=== PATIENT | female | born 1950 | race Two or more races ===

== ENCOUNTER 2023-02-05 11:37 | Outpatient (REF) | payer MEDICARE, SELFPAY ==
[2023-02-06 11:06] LABS: BV Int Neg Control Negative (Negative); BV Int Pos Control Positive (Positive)
== END 2023-02-05 11:38 | disposition home or self-care (01) ==
LOC: HO.CHCLNP 11:37
PROVIDERS: Visit Provider Family Medicine
DX: R10.2 Pelvic and perineal pain (principal)
CPT/HCPCS: 87086; 87480; 87510; 87660

== ENCOUNTER 2023-03-02 14:10 | Outpatient (REF) | payer OTHER, SELFPAY ==
--- NOTE | ~2023-03-02 | US_ITS ---
EXAMINATION: US PELVIS CLINICAL INFORMATION: Pelvic pain. Unknown last menstrual period. Uterus surgically absent. COMPARISON: None available. TECHNIQUE: Ultrasound of the pelvis is performed using both transabdominal and transvaginal transducers along with Doppler. Transvaginal imaging is performed due to inadequate visualization transabdominally. FINDINGS: Visualization severely limited due to bowel gas. The uterus and bilateral ovaries were not visualized. No significant free fluid. No adnexal masses or fluid collections identified. US/US pelvic and transvaginal IMPRESSION: Visualization severely limited due to bowel gas. The uterus and bilateral ovaries were not visualized. No significant free fluid. No adnexal masses or fluid collections identified. Correlation with surgical history and clinical exam recommended to determine further management. CT scan or MRI should be considered for further assessment.
== END 2023-03-02 14:11 | disposition home or self-care (01) ==
LOC: HO.US 14:10
PROVIDERS: PCP Family Medicine; Visit Provider Family Medicine
DX: R10.2 Pelvic and perineal pain (principal)
CPT/HCPCS: 76830; 76856

== ENCOUNTER 2023-07-12 08:36 | Outpatient (REF) | payer OTHER, SELFPAY ==
--- NOTE | ~2023-07-12 | XR_ITS ---
EXAMINATION: 1. RADIOGRAPHS RIGHT ANKLE 2. RADIOGRAPHS LEFT ANKLE CLINICAL INFORMATION: Bilateral ankle pain and swelling for 4 days. COMPARISON: None TECHNIQUE: 3 views of each ankle were obtained. FINDINGS: Right ankle: Visualized portion of the distal tibia and fibula demonstrate no fracture. Ankle mortise is maintained. There is soft tissue swelling of the right ankle, more prominent medially. No gross ankle joint effusion. Small posterior and plantar calcaneal enthesophytes. Left ankle: Visualized portion of the distal left tibia and fibula demonstrate no fracture. Ankle mortise is maintained. Mild to moderate soft tissue swelling of the ankle, particularly medially. No gross ankle joint effusion. Small to moderate-sized plantar and posterior calcaneal enthesophytes. XR/XR ankle RT min 3V IMPRESSION: Soft tissue swelling of both ankles without fracture or dislocation.
--- NOTE | ~2023-07-12 | XR_ITS ---
EXAMINATION: 1. RADIOGRAPHS RIGHT ANKLE 2. RADIOGRAPHS LEFT ANKLE CLINICAL INFORMATION: Bilateral ankle pain and swelling for 4 days. COMPARISON: None TECHNIQUE: 3 views of each ankle were obtained. FINDINGS: Right ankle: Visualized portion of the distal tibia and fibula demonstrate no fracture. Ankle mortise is maintained. There is soft tissue swelling of the right ankle, more prominent medially. No gross ankle joint effusion. Small posterior and plantar calcaneal enthesophytes. Left ankle: Visualized portion of the distal left tibia and fibula demonstrate no fracture. Ankle mortise is maintained. Mild to moderate soft tissue swelling of the ankle, particularly medially. No gross ankle joint effusion. Small to moderate-sized plantar and posterior calcaneal enthesophytes. XR/XR ankle LT min 3V IMPRESSION: Soft tissue swelling of both ankles without fracture or dislocation.
== END 2023-07-12 08:37 | disposition home or self-care (01) ==
LOC: HO.HHCX 08:36
PROVIDERS: Visit Provider Internal Medicine
DX: M25.571 Pain in right ankle and joints of right foot (principal); M25.572 Pain in left ankle and joints of left foot
CPT/HCPCS: 73610

== ENCOUNTER 2023-07-20 12:24 | Outpatient (REF) | payer OTHER, SELFPAY ==
--- NOTE | ~2023-07-20 | US_ITS ---
EXAMINATION: US RETROPERITONEAL LIMITED (RENAL ONLY) CLINICAL INFORMATION: Low back pain/leg pain and urinary symptoms. COMPARISON: None available. TECHNIQUE: Real-time ultrasound of the kidneys FINDINGS: RIGHT KIDNEY: 8.9 x 3.6 x 4.4 cm (SAG x AP x TRV). The right kidney has a duplicated collecting system. There is lower pole scarring with cortical loss. An extrarenal pelvis is noted. No calculi or hydronephrosis. LEFT KIDNEY: 10.3 x 4.3 x 4.5 cm (SAG x AP x TRV). The kidney is normal in size, contour, and echogenicity. Renal cortical thickness is normal. No hydronephrosis. There are 3 renal cysts, the largest is a 2.8 x 2.5 x 2.6 cm exophytic mid renal cyst. No imaging follow-up is recommended. 0.3 cm cortical calcification is seen in the mid kidney. No obstructing renal calculi. US/US renal BI IMPRESSION: 1. 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 2. 0.3 cm cortical calcification in the mid left kidney. This is of doubtful clinical significance.
== END 2023-07-20 12:25 | disposition home or self-care (01) ==
LOC: HO.US 12:24
PROVIDERS: PCP Family Medicine; Visit Provider Internal Medicine
DX: M25.571 Pain in right ankle and joints of right foot (principal); M25.572 Pain in left ankle and joints of left foot
CPT/HCPCS: 76775

== ENCOUNTER 2023-08-21 10:22 | Outpatient (REF) | payer OTHER, SELFPAY ==
--- NOTE | ~2023-08-21 | US_ITS ---
EXAMINATION: US LOWER EXTREMITY VENOUS (REFLUX EXAM), BILATERAL CLINICAL INDICATION: Varicose veins COMPARISON: None. TECHNIQUE: Color flow triplex imaging and compression Doppler was performed to evaluate both the deep and the superficial systems bilaterally. To evaluate the superficial system, the examination was performed in the upright position. Color-flow Doppler ultrasound and compression ultrasound were utilized. In addition, maneuvers were utilized to demonstrate reflux. FINDINGS: RIGHT: 1. DEEP VENOUS ULTRASOUND OF THE RIGHT LOWER EXTREMITY: Common Femoral Vein: Compressible, normal respiratory variation and augmented flow. Popliteal Vein: Compressible, normal augmentation. Deep Venous Reflux: There is no evidence of reflux in the deep system in either the common femoral vein or the popliteal vein. There is no evidence of a Beltran's cyst. 2. SUPERFICIAL ULTRASOUND WITH DOPPLER OF RIGHT LOWER EXTREMITY: RIGHT GREAT SAPHENOUS VEIN: Saphenofemoral Junction: 6 mm. No reflux. Proximal Thigh: 3 mm. No reflux. Mid Thigh: 2 mm. No reflux. Above Knee: 2 mm. No reflux. Below Knee: 2 mm. No reflux. Mid Calf: 2 mm. No reflux. Ankle: 4 mm. No reflux. DUPLICATED GREAT SAPHENOUS VEIN: Yes, laterally measuring 3 mm and without reflux. RIGHT SMALL SAPHENOUS VEIN: Proximal: 1 mm. No reflux. Distal: 2 mm. No reflux. PERFORATORS: Mid calf: 2 mm. No reflux LEFT: 1. DEEP VENOUS ULTRASOUND OF THE LEFT LOWER EXTREMITY: Common Femoral Vein: Compressible, normal respiratory variation and augmented flow. Popliteal Vein: Compressible, normal augmentation. Deep Venous Reflux: There is no evidence of reflux in the deep system in either the common femoral vein or the popliteal vein. There is no evidence of a Beltran's cyst. 2. SUPERFICIAL ULTRASOUND WITH DOPPLER OF LEFT LOWER EXTREMITY: LEFT GREAT SAPHENOUS VEIN: Saphenofemoral Junction: 4 mm. No reflux. Proximal Thigh: 2 mm. No reflux. Mid Thigh: 2 mm. No reflux. Above Knee: 2 mm. No reflux. Below Knee: 2 mm. No reflux. Mid Calf: 1 mm. 2588 ms reflux. Ankle: 2 mm. No reflux. DUPLICATED GREAT SAPHENOUS VEIN: Yes, laterally measuring 2 mm and without reflux. LEFT SMALL SAPHENOUS VEIN: Proximal: 2 mm. No reflux. Distal: 2 mm. No reflux. PERFORATORS: Mid thigh: 2 mm. No reflux Mid calf: 2 mm. No reflux US/US venous duplex LE BI IMPRESSION: Overall, no significant superficial venous reflux of bilateral lower extremities except for focal area at the left great saphenous vein at the mid calf where prolonged reflux is seen. Abnormal lower extremity venous reflux times: Superficial and deep calf veins: >500 ms Femoropopliteal veins: >1000 ms Perforating veins: >350 ms Kristie N, Sagar J, Chanel L, Georgiana COELHO, Ronald SS, Radha Cantu M, Ruby WH. Definition of venous reflux in lower-extremity veins.J Vasc Surg. 2003; 38:[phone]?798.
== END 2023-08-21 10:23 | disposition home or self-care (01) ==
LOC: HO.US 10:22
PROVIDERS: Visit Provider Family Medicine
DX: I83.813 Varicose veins of bilateral lower extremities with pain (principal)
CPT/HCPCS: 93970

== ENCOUNTER 2023-09-14 13:56 | Outpatient (REF) | payer OTHER, SELFPAY ==
--- NOTE | ~2023-09-14 | MM_ITS ---
EXAMINATION: MM SCREENING DIGITAL BREAST TOMOSYNTHESIS, BILATERAL CLINICAL INFORMATION: Screening. Asymptomatic. COMPARISON: Mammography: This study is compared with prior exams dating back to 2016. TECHNIQUE: Digital breast tomosynthesis is performed in both the craniocaudal and mediolateral oblique views along with computer-aided detection (CAD). Synthesized 2D images are generated from the tomosynthesis. FINDINGS: The breasts are heterogeneously dense, which may obscure small masses (ACR BI-RADS breast composition Category c). There are no significant masses, abnormal calcifications, or other abnormalities. MM/MM tomosynthesis screening BI IMPRESSION: No mammographic evidence of malignancy. ASSESSMENT: BI-RADS BI-RADS 1 - Negative RECOMMENDATION: Routine annual mammography screening. 1 year F/U This examination should not preclude the clinical evaluation of a suspicious palpable abnormality. This patient's information was entered into a reminder system with a target due date for their next mammogram.
== END 2023-09-14 13:57 | disposition home or self-care (01) ==
LOC: HO.MAMMO 13:56
PROVIDERS: PCP Family Medicine; Visit Provider Family Medicine
DX: Z12.31 Encounter for screening mammogram for malignant neoplasm of breast (principal)
CPT/HCPCS: 77063; 77067

== ENCOUNTER → 2023-09-14 14:15 | Outpatient (BNV) | payer OTHER, SELFPAY | PROVIDERS: PCP Family Medicine; Visit Provider Radiology Diagnostic Radiology | DX: Z12.31 Encounter for screening mammogram for malignant neoplasm of breast (principal) | CPT/HCPCS: 77063; 77067 ==

== ENCOUNTER 2023-09-27 09:48 | Outpatient (AMB) | payer OTHER, SELFPAY ==
--- NOTE | 2023-09-27 09:49 | A.OFFVIS_ITS ---
Vital Signs 09/27/23 09:55 Height 5 ft 4 in Weight 139 lb BMI 23.9 Intake Visit Reasons: [facility] referral for bilateral LE VV w/ pain Intake Note: New patient presents for bilateral lower extremity varicose veins with pain. Patient has pain in both legs, near the ankle. She experiences pain at night. States she gets swelling as well. Pain worsens when she is in bed. Accompanied by: Self / Same As Patient HPI [facility] referral for bilateral LE VV w/ pain: Details: Very pleasant 72-year-old female patient presents for painful varicose veins. Complaints include pain over varicosities, swelling of lower extremities, cramping, fatigue, and heaviness of the lower extremities. It has been affecting there daily activities including walking and grocery shopping. It is noted more so in left leg. Patient denies any previous venous surgery or injections. Patient denies any history of DVT/ PE. Patient denies any history of phlebitis. Trial of compression includes - prescription compression given by primary care doctor on 08/06/2023 They now present for vascular evaluation regarding their varicose veins. Review of Systems Const Reports as per HPI ENT Reports no additional complaints Card Denies chest pain, Denies chest pain at rest and Denies chest pain with activity Resp Denies chest congestion and Denies cough GI Reports no additional complaints Musc Details: pain over varicosities, aching of lower extremities, swelling, cramping, heaviness and tiredness, itching Denies abnormal gait Skin/Breast Reports pruritus and Denies wounds Neuro Reports no additional complaints and Denies abnormal gait Psych Denies no additional complaints Physical Exam Vital Signs: BMI result Body Mass Index 23.9 Const General: cooperative, healthy appearing and comfortable Orientation/consciousness: oriented to person, oriented to place and oriented to time Neck Carotids: no bruits Chest Chest palpation & inspection: normal inspection of the chest and normal palpation of entire chest wall Resp Effort & Inspection: normal respiratory effort and able to speak in complete sentences Cardio Rate: regular rate Heart sounds: S1 normal heart sound present and S2 normal heart sound present Peripheral pulses: Peripheral pulses 2+ throughout GI Inspection: Yes normal to inspection Skin Other: +2 edema, large rope-like varicosities greater than 4 mm skin color changes seen on bilateral ankles CEAP Classification C4 - skin color changes Ep - Etiology Primary As - superficial veins P - reflux General skin exam: dry skin Neuro General: oriented to person, oriented to place and oriented to time Extrem Right lower extremity: full ROM, normal capillary refill and edema Left lower extremity: full ROM, normal capillary refill and edema Psych Mental Status: mental status grossly normal Assessment & Plan Assessment & Plan (1) Varicose veins of left lower extremity with inflammation: Code(s): I83.12 - Varicose veins of left lower extremity with inflammation Category: Medical Plan: In short, the patient has evidence of venous insufficiency. I have discussed the pathophysiology with the patient. In addition I have provided informational material regarding venous disease to the patient. We have discussed conservative measures including compression, elevation, and exercise. I have also provided a handout regarding appropriate use of compression stockings and where to purchase good compression stockings as well. I have taken the liberty of ordering venous insufficiency testing with the patient. They will follow up with me after testing. The patient had an opportunity to ask questions regarding the treatment plan. All questions were answered. Imaging studies, laboratory studies and physical exam results were discussed and reviewed in detail. No major barriers to understanding were identified. The patient expressed understanding and agreement with the above treatment plan. The patient is aware they should contact our office by phone for worsening of the current condition or the appearance of new symptoms. Thank you for allowing me to participate in the vascular care of this patient. If you have any questions or concerns regarding the treatment for the above condition please do not hesitate to contact me. The office telephone contact is [phone]. This note is constructed using voice recognition software. While every effort has been made to ensure accuracy, contracting analyst errors may have been included. Thank you for allowing me to participate in the care of your patient. Yours sincerely, Cody Gonzalez MD, FACS, R.P.V.I. Orders: Orders US venous duplex LE BI 1 Week I83.12 - Varicose veins of left lower extremity with inflammation Coding Level of Care Code New Pt Level 4 (07986) Diagnoses Varicose veins of left lower extremity with inflammation I83.12
[2023-09-27 09:55] VITALS: BMI 23.9
== END 2023-09-27 10:03 | disposition home or self-care (01) ==
PROVIDERS: PCP Family Medicine; Visit Provider Surgery Vascular Surgery
DX: I83.12 Varicose veins of left lower extremity with inflammation (principal)
CPT/HCPCS: 99203

== ENCOUNTER → 2023-09-27 09:48 | Outpatient (BNVA) | payer OTHER, SELFPAY | PROVIDERS: PCP Family Medicine; Visit Provider Surgery Vascular Surgery | DX: I83.12 Varicose veins of left lower extremity with inflammation (principal) | CPT/HCPCS: 99202 ==

== ENCOUNTER 2023-10-15 11:26 | Outpatient (REF) | payer OTHER, SELFPAY ==
--- NOTE | ~2023-10-15 | CT_ITS ---
EXAMINATION: CT PELVIS WITH CONTRAST CLINICAL INFORMATION: Pelvic pain. COMPARISON: None available. TECHNIQUE: Helical scanning was performed with submillimeter collimation through the pelvis with the use of oral contrast and during bolus intravenous injection of 85mL of Omnipaque 350 intravenous contrast. Sagittal and coronal multiplanar 2-D reconstructions were obtained. This CT examination was performed using dose optimization techniques as appropriate, variously including the following: *Automated exposure control *Adjustment of mA and/or kV according to patient size (this includes techniques or standardized protocols for targeted exams where dose is matched to indication/reason for exam; i.e. extremities or head) *Use of iterative reconstruction technique DLP: 266 mGy-cm FINDINGS: PELVIS: Two high density masses appear to be present in the vaginal fornices. The uterus is not seen. An abnormal adnexal mass is not detected. No free intraperitoneal fluid is seen. The bladder appears unremarkable. The visualized bowel including the appendix appears unremarkable. No osseous abnormality is seen. There is a small spigelian-type hernia seen in the lower left pelvis which contains only fat. Fascial defect measures 1.[address]/CT pelvis w IV con IMPRESSION: 1. Two high density masses appear to be present in the vaginal fornices. If the patient inserts vaginal suppositories, possibly this could account for the appearance. Otherwise, Transabdominal and endovaginal ultrasound is recommended for further evaluation. 2. Small left lower pelvic Spigelian hernia containing only fat.
[2023-10-15] MEDS: Barium Sulfate Oral (Vanilla) 450 ML ORAL.SUSP 900 ML PO (14:25)
[2023-10-15] MEDS: iohexoL 350 MG/ML 75 ML INFUS..BTL 85 ML IV (14:25)
[2023-10-16 10:54] LABS: GFR POC 58
== END 2023-10-15 11:27 | disposition home or self-care (01) ==
LOC: HO.CT 11:26
PROVIDERS: PCP Family Medicine; Visit Provider Family Medicine
DX: R10.31 Right lower quadrant pain (principal); R10.2 Pelvic and perineal pain
CPT/HCPCS: 72193; 82565; Q9967

== ENCOUNTER 2023-12-12 08:49 | Outpatient (REF) | payer OTHER, SELFPAY ==
[2023-12-12 14:37] LABS: MANUAL DIFF FLAG NO
[2023-12-12 14:40] LABS: Basophils Absolute Auto 0.1 X10*3/uL (0.0-0.2); Basophils Percent Auto 0.7 % (0-2); Eosinophils Absolute Auto 0.4 X10*3/uL (0.0-0.4); Eosinophils Percent Auto 4.3 % (0-4); Hemoglobin 15.1 g/dl (12.0-16.0); Imm Gran Abs Auto 0.07 X10*3/uL (0.00-0.03); Imm Gran Pct Auto 0.7 % (0.0-0.4); Lymphocytes Absolute Auto 3.3 X10*3/uL (1.2-4.9); Lymphocytes Percent Auto 32.1 % (20-40); Mean Corpuscular HGB Conc 32.1 g/dl (31.0-35.0); Mean Corpuscular Hemoglobin 26.4 pg (27.0-33.0); Mean Corpuscular Volume 82.3 fL (80.0-98.0); Mean Platelet Volume 11.6 fL (9.4-12.3); Monocytes Absolute Auto 0.8 X10*3/uL (0.1-1.2); Monocytes Percent Auto 7.7 % (2-11); Neutrophils Absolute Auto 5.6 x10*3/uL (2.0-8.3); Neutrophils Percent Auto 54.5 % (45-73); Platelet Count 317 X10*3/uL (160-400); Red Blood Count 5.71 X10*6/uL (4.20-5.50); Red Cell Distribution Width 15.1 % (11.0-16.0); White Blood Count 10.3 X10*3/uL (4.8-10.8)
[2023-12-12 15:11] LABS: Alanine Aminotransferase 38 U/L (0-31); Albumin Level 4.7 g/dL (3.5-5.0); Alkaline Phosphatase 93 U/L (39-117); Anion Gap 11 (12-20); Aspartate Amino Transferase 29 U/L (5-31); Bilirubin Total 0.6 mg/dL (0.0-1.0); Blood Urea Nitrogen 24 mg/dL (9-16); Calcium 10.5 mg/dL (8.4-10.2); Carbon Dioxide 25 mmol/L (22-29); Chloride 107 mmol/L (96-108); Cholesterol 140 mg/dL (<200); Estimated Glomerular Filt Rate 59; Glucose Random 123 mg/dL (60-115); HDL Cholesterol 49 mg/dL (>40); LDL Cholesterol Calculated 62 mg/dL (<100); Potassium 3.8 mmol/L (3.3-5.1); Sodium 139 mmol/L (135-145); Total Protein 8.1 g/dL (6.5-8.0); Triglycerides 148 mg/dL (<150)
[2023-12-12 15:28] LABS: TSH reflex Free T4 4.27 uIU/mL (0.32-4.0); Vitamin D 25-OH Total 51.8 ng/mL (>30)
[2023-12-12 17:06] LABS: Free T4 (Free Thyroxine) 0.87 ng/dL (0.71-1.85)
== END 2023-12-12 08:50 | disposition home or self-care (01) ==
LOC: HO.CHCLDS 08:49
PROVIDERS: Visit Provider Family Medicine
DX: E11.9 Type 2 diabetes mellitus without complications (principal); L65.9 Nonscarring hair loss, unspecified
CPT/HCPCS: 36415; 80053; 80061; 82306; 84439; 84443; 85025

== ENCOUNTER 2023-12-20 09:57 | Outpatient (AMB) | payer OTHER, SELFPAY ==
--- NOTE | 2023-12-20 10:00 | MHC.OFFVIS ---
Intake Visit Reasons: Follow Up US Intake Note: Patient presents for follow up 08/20/24 US. She states she is still having bilateral leg pain. Patient rolled up pant leg to show that she has discoloration on both calfs. She gets leg cramps and swelling on and off . Accompanied by: Self / Same As Patient Allergies No Known Allergies Allergy (Verified 12/20/23 10:02) HPI HPI Follow Up US: Details: Very pleasant 73-year-old female presents for follow-up regarding lower extremity swelling. She reports that the swelling is more so in the ankles and does have tenderness over the ankle joints. She now presents for routine follow-up with venous insufficiency testing. She has used compression with some mild relief. No other interval issues. Review of Systems Const All systems reviewed & are unremarkable except as noted in HPI and below Reports no additional complaints ENT Reports Normal hearing present Card Denies chest pain, Denies chest pain at rest, Denies chest pain with activity and Denies pedal edema Resp Denies cough GI Denies abdominal pain Musc Denies abnormal gait, Denies muscle cramps and Denies radiating pain into limb Skin/Breast Denies skin ulcer and Denies wounds Neuro Reports Normal hearing present and Denies abnormal gait Psych Reports no additional complaints Physical Exam Const General: cooperative, healthy appearing and comfortable Orientation/consciousness: oriented to person, oriented to place and oriented to time HEENT Head: Yes normal to inspection Neck Neck: Yes normal visual inspection Carotids: no bruits Chest Chest palpation & inspection: normal inspection of the chest Resp Effort & Inspection: normal respiratory effort and able to speak in complete sentences Auscultation: clear to auscultation bilaterally, no crackles, no rales, no rhonchi and no wheezes Cardio Rate: regular rate Rhythm: regular rhythm Heart sounds: S1 normal heart sound present and S2 normal heart sound present Bruits: no carotid bruits Peripheral pulses: Peripheral pulses 2+ throughout GI Inspection: Yes normal to inspection Skin Wounds: no wounds Hair: normal Neuro General: oriented to person, oriented to place and oriented to time Cranial nerves: Yes CN's II-XII intact bilaterally and Yes Normal hearing present Cognition (Neuro): normal cognition Motor exam (neuro): 5/5 motor strength present throughout Extrem Other: venous exam: +1 edema at ankles General: No clubbing, No cyanosis and Yes edema Psych Appearance: grossly normal Mental Status: mental status grossly normal Speech and movement: Normal speech and movement present Results Reviewed Results Reviewed: Brief summary of venous insufficiency testing is as follows: right great saphenous vein: negative right small saphenous vein: negative right accessory vein: none present left great saphenous vein: negative left small saphenous vein: negative left accessory vein: none present Please note there is no evidence of any venous aneurysms or significant tortuosity Assessment & Plan Assessment & Plan (1) Varicose veins of left lower extremity with inflammation: Code(s): I83.12 - Varicose veins of left lower extremity with inflammation Category: Medical Plan: In short patient has pain and discomfort in bilateral ankles along with swelling. Of note it does not appear to be vascular in nature as she does have palpable arterial pulses bilaterally in addition to negative venous insufficiency testing. Upon direct palpation she does have tenderness and I do believe that this may be an element of arthritis along with chronic swelling. We did discuss routine conservative measures including compression elevation and exercise. The patient will follow up with us on an as-needed basis. Thank you for allowing us to assist in her care. Coding Level of Care Code Est Pt Level 4 (72962) Diagnoses Varicose veins of left lower extremity with inflammation I83.12
== END 2023-12-20 10:25 | disposition home or self-care (01) ==
PROVIDERS: PCP Family Medicine; Visit Provider Surgery Vascular Surgery
DX: I83.12 Varicose veins of left lower extremity with inflammation (principal)
CPT/HCPCS: 99214

== ENCOUNTER → 2023-12-20 09:57 | Outpatient (BNVA) | payer OTHER, SELFPAY | PROVIDERS: PCP Family Medicine; Visit Provider Surgery Vascular Surgery | DX: I83.12 Varicose veins of left lower extremity with inflammation (principal) | CPT/HCPCS: 99212 ==

== ENCOUNTER 2024-02-18 09:04 | Outpatient (REF) | payer OTHER, SELFPAY ==
[2024-02-18 14:48] LABS: TSH reflex Free T4 6.39 uIU/mL (0.32-4.0)
[2024-02-18 15:20] LABS: Free T4 (Free Thyroxine) 0.88 ng/dL (0.71-1.85)
== END 2024-02-18 09:05 | disposition home or self-care (01) ==
LOC: HO.CHCLDS 09:04
PROVIDERS: Visit Provider Family Medicine
DX: E03.9 Hypothyroidism, unspecified (principal)
CPT/HCPCS: 36415; 84439; 84443

== ENCOUNTER 2024-04-17 13:58 | Outpatient (REF) | payer OTHER, SELFPAY ==
[2024-04-17 18:12] LABS: Anion Gap 12 (12-20); Blood Urea Nitrogen 22 mg/dL (9-16); Calcium 9.9 mg/dL (8.4-10.2); Carbon Dioxide 24 mmol/L (22-29); Chloride 110 mmol/L (96-108); Estimated Glomerular Filt Rate 41; Glucose Random 110 mg/dL (60-115); Parathyroid Hormone Intact 81.7 pg/mL (8.7-77.1); Sodium 142 mmol/L (135-145)
[2024-04-17 18:28] LABS: TSH reflex Free T4 4.13 uIU/mL (0.32-4.0)
[2024-04-17 19:14] LABS: Free T4 (Free Thyroxine) 1.02 ng/dL (0.71-1.85)
== END 2024-04-17 13:59 | disposition home or self-care (01) ==
LOC: HO.CHCLDS 13:58
PROVIDERS: PCP Family Medicine; Visit Provider Internal Medicine
DX: E83.52 Hypercalcemia (principal); E03.9 Hypothyroidism, unspecified
CPT/HCPCS: 36415; 80048; 83970; 84439; 84443

== ENCOUNTER 2024-04-30 10:08 | Outpatient (REF) | payer OTHER, SELFPAY ==
[2024-05-03 20:33] LABS: Thyrotropin Receptor Antibody <1.00 IU/L (<=2.00)
[2024-05-05 11:39] LABS: Thyroglobulin Antibodies <1 IU/mL (< or = 1)
== END 2024-04-30 10:09 | disposition home or self-care (01) ==
LOC: HO.LAB 10:08
PROVIDERS: PCP Family Medicine; Visit Provider Family Medicine
DX: E03.9 Hypothyroidism, unspecified (principal)
CPT/HCPCS: 36415; 83520; 86800

== ENCOUNTER 2024-08-22 11:02 | Outpatient (REF) | payer OTHER, SELFPAY ==
--- OUTSIDE RECORDS SUMMARY | 2024-08-22 12:00 | XMS_ITS | Encounter Summary ---
Author Organization [facility] Address [address] [place] [address] Care Team Providers Care Certified Nurse Name Role Phone Ponce Dumont MD Primary Care Provider Un available Allie Gandara DO Primary Care Pro vider Unavailable Gregory Underwood MD Primary Care Provider Dominique Santos MD Primary Care Provider Zulema henry Reason for Referral * EXTERNAL (Routine) - Authorized/Booked Specialty Diagnoses / Procedures Referred By Cori fraire Referred To Contact Physical Therapy Procedures REFERRAL TO PHYSICAL THERAPY Ponce Dumont MD [address] [place], [place] [address]ab., [facility] Referral ID Status Reason Start Date Expiration Date V isits Requested Visits Authorized SEE NOTE Authorized/B ooked 02/06/2018 05/08/2018 1 1 Reason for Visit * Reason Onset Date Comments 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 02/06/2018 [facility] Encounter Details Date Type Department Care Team Description 02/06/2018 Telephone Adult Medicine [address] [address] Ponce Dumont MD 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 0 days 04/24/2019 On average, how many minutes do you engage in exercise at this level? Not asked Stress Answer Date Recorded Do you feel stress - tense, restless, nervous, or anxious, or unable to sleep at night because your mind is troubled all the time - these days? To some extent 04/24/2019 Sex Assigned at Date Recorded Not on file documented as of this encounter Miscellaneous Notes * Telephone Encounter - Cielo Brito - 02/06/2018 12:58 PM EDT Patient has an appointment with Vamsi on 02/19/2018 and needs a new updated order. Please review and sign. documented in this encounter Plan of Treatment Not on file documented as of this encounter Visit Diagnoses Not on filedocumented in this encounter Care Teams Certified Nurse Relationship Specialty Start Date End Date Ponce Dumont MD PCP - General Internal Medicine 10/23/17 Allie Gandara DO PCP - General Internal Medicine 04/18/19 01/30/21 Gregory Underwood MD PCP - General Internal Medicine 01/31/21 12/18/21 Dominique Nielsen MD PCP - General Family Practice 12/19/21 documented as of this encounter
--- OUTSIDE RECORDS SUMMARY | 2024-08-22 12:00 | XMS_ITS | Encounter Summary ---
Author Organization [facility] Address [address] [place] [address] Care Team Providers Care Printer Machine Name Role Phone Dominique Nielsen MD Primary Care Provider Zulema henry Encounter Details Date Type Department Care Team Description 11/27/2022 SCAN [facility] [address] [place] [address] Jerry Wright MD [address] [facility] [place] [address] Social History Tobacco Use Types Packs/Day Years [...] Assigned at Date Recorded Not on file COVID-19 Exposure Response Date Recorded In the last 10 days, have yo u been in contact with someone who was confirmed or suspected to have Coronavirus/COVID-19? No / Unsure 11/16/2022 2:30 PM EDT documented as of this encounter Plan of Treatment Not on file documented as of this encounter Visit Diagnoses Not on filedocumented in this encounter Care Teams Printer Machine Relationship Specialty Start Date End Date Dominique Nielsen MD PCP - General Family Practice 12/19/21 documented as of this encounter
--- OUTSIDE RECORDS SUMMARY | 2024-08-22 12:00 | XMS_ITS | Encounter Summary ---
Author Organization [facility] Address [address] [place] [address] Care Team Providers Care Procurement Inspector Name Role Phone Ponce Dumont MD Primary Care Provider Un available Allie Gandara DO Primary Care Pro vider Unavailable Gregory Underwood MD Primary Care Provider Dominique Santos MD Primary Care Provider Zulema henry Reason for Visit * Reason Comments E-prescribe Rx Request Encounter Details Date Type Department Care Team Description 07/15/2018 Refill Adult Medicine [address] [address] Ponce Dumont MD E-prescribe Rx Request Social History Tobacco Use Types Packs/Day Years [...] encounter Miscellaneous Notes * Telephone Encounter - Rosemary Lima M.A. - 07/17/2018 3:00 PM EST Lab Results Component Value Date NA 144 01/17/2018 K 3.7 01/17/2018 CO2 25.1 01/17/2018 CL 103 01/17/2018 BUN 19 01/17/2018 CREAT 0.8 01/17/2018 GLU 129 01/17/2018 CA 9.8 01/17/2018 GFR > 60 01/17/2018 * Telephone Encounter - Khadijah Titus - 07/15/2018 3:55 PM EST Patient would like script to be: E-PRESCRIBED/FAXED TO PHARMACY WHEN WAS THE PATIENT'S LAST APPOINTMENT IN ADULT MEDICINE? 04-18-18 WHEN WAS THE LAST TIME THE PATIENT SAW THEIR PCP? Same as above Does patient have an upcoming appointment? No-patient refused appointment, will call back to book appointment (THE MEDICATION REQUESTED IS ON THE MED LIST ABOVE) All of the medications requested were on the CURRENT MEDS list Did you check the Pharmacy information above?: YES Patient wants: 30 -day supply Is this a mail order prescription request ? NO If the refill is from a FAXED refill request what is the RX # listed on the fax? N/A Patients current insurance carrier is: Payor: [facility] / Plan: [employer] $0 [facility] [id number] / Product Type: HMO [id number] documented in this encounter Plan of Treatment Not on file documented as of this encounter Visit Diagnoses Not on filedocumented in this encounter Care Teams Procurement Inspector Relationship Specialty Start Date End Date Ponce Dumont MD PCP - General Internal Medicine 10/23/17 Allie Gandara DO PCP - General Internal Medicine 04/18/19 01/30/21 Gregory Underwood MD PCP - General Internal Medicine 01/31/21 12/18/21 Dominique Nielsen MD PCP - General Family Practice 12/19/21 documented as of this encounter
--- OUTSIDE RECORDS SUMMARY | 2024-08-22 12:00 | XMS_ITS | Encounter Summary ---
Author Organization [facility] Address [address] [place] [address] Care Team Providers Care Slag Expander Name Role Phone Gregory Underwood MD Primary Care Provider Dominique Santos MD Primary Care Provider Zulema henry Encounter Details Date Type Department Care Team Description 12/15/2021 Release of Information Medical Records [address] [place] [id number] [facility] Social History Tobacco Use Types Packs/Day Years [...] on file documented as of this encounter Plan of Treatment Not on file documented as of this encounter Visit Diagnoses Not on filedocumented in this encounter Care Teams Slag Expander Relationship Specialty Start Date End Date Gregory Underwood MD PCP - General Internal Medicine 01/31/21 12/18/21 Dominique Nielsen MD PCP - General Family Practice 12/19/21 documented as of this encounter
--- OUTSIDE RECORDS SUMMARY | 2024-08-22 12:00 | XMS_ITS | Encounter Summary ---
Author Organization [facility] Address [address] [place] [address] Care Team Providers Care Reel Worker Name Role Phone Ponce Dumont MD Primary Care Provider Un available Allie Gandara DO Primary Care Pro vider Unavailable Gregory Underwood MD Primary Care Provider Dominique Santos MD Primary Care Provider Zulema henry Encounter Details Date Type Department Care Team Description 01/21/2018 Release of Information Medical Records [address] [place] [id number] Abstract, Provider Social History Tobacco Use Types Packs/Day Years [...] on filedocumented in this encounter Care Teams Reel Worker Relationship Specialty Start Date End Date Ponce Dumont MD PCP - General Internal Medicine 10/23/17 Allie Gandara DO PCP - General Internal Medicine 04/18/19 01/30/21 Gregory Underwood MD PCP - General Internal Medicine 01/31/21 12/18/21 Dominique Nielsen MD PCP - General Family Practice 12/19/21 documented as of this encounter
--- OUTSIDE RECORDS SUMMARY | 2024-08-22 12:00 | XMS_ITS | Encounter Summary ---
Author Organization [employer] Address [address] [place] [address] [address] [place] [address] Care Team Providers Care Violent Crimes Detective Name Role Phone Dominique Nielsen MD Primary Care Provider [phone] Reason for Visit * Reason Comments Med Refill Encounter Details Date Type Department Care Team ([facility] st Contact Info) Description 11/04/2022 Refill [facility] CHC MED & PEDS [address] [place], [place] [phone] Dominique Nielsen MD [address] [place] [address] Rash in adult Social History Tobacco Use Types Packs/Day Years Used Date Smoking Tobacco: Never Passive Smoke Exposure: Never Smokeless Tobacco: Never Alcohol Use Standard Drinks/Week Comments Never 0 (1 standard drink = 0.6 oz pur e alcohol) Comments Unknown Sex and Gender Information Value Date Recorded Sex Assigned at Female 03/13/2022 10:39 AM EDT Legal Sex Female 10:39 AM EDT Gender Identity Female 03/13/2022 10:39 AM EDT Sexual Orientation Straight 03/13/2022 10 :39 AM EDT documented as of this encounter Plan of Treatment Not on file documented as of this encounter Visit Diagnoses Diagnosis Rash in adult documented in this encounter Additional Health Concerns Assessment Noted Time PHQ-9 Depression Total Score: 13 023 9:28 AM EDT documented as of this encounter Care Teams Violent Crimes Detective Relationship Specialty Start Date End Date Dominique Nielsen MD [address] [place] [address] PCP - General Family Medicine 04/04/21 documented as of this encounter
--- OUTSIDE RECORDS SUMMARY | 2024-08-22 12:00 | XMS_ITS | Clinical Summary ---
Author Organization [facility] Address [address] [place] [address] Care Team Providers Care Game Tester Name Role Phone Allie Gandara DO Primary Care P rovider Allergies Active Allergy Reactions Criticality Noted Date Comments Aspirin 08/18/2020 Face and neck redness Penicillin G 08/18/2020 Face and neck redness Medications Medication Sig Dispensed Refills Start Date End Date Status loratadine (CLARITIN) 10 MG tablet Take 10 mg by mouth daily. 0 Active triamcinolone (KENALOG) 0.1 % lotion Apply 1 application topically 3 (three) times a day. 0 Active Calcium-Vitamin D 600-200 MG-UNIT per tablet Take 1 tablet by mouth daily. 0 Active losartan (COZAAR) tablet 25 mg Take 25 mg by mouth daily. 0 Active amLODIPine (NORVASC) tablet 10 mg Take 10 mg by mouth daily. 0 Active Active Problems No known active problems Social History Tobacco Use Types Packs/Day Years Used Date Smoking Tobacco: Never Smokeless Tobacco: Never Alcohol Use Standard Drinks/Week Comments No 0 (1 standard drink = 0.6 oz pur e alcohol) Sex and Gender Information Value Date Recorded Sex Assigned at Not on file Gender Identity Not on file Sexual Orientation Not on file Last Filed Vital Signs Vital Sign Reading Time Taken Comments Blood Pressure 144/63 09/01/2020 1:41 PM EDT Pulse 86 09/01/2020 1:41 PM EDT Temperature 36.8 ??C (98.3 ??F) 09/01/2020 1:41 PM ED T Respiratory Rate - - Oxygen Saturation 100% 09/01/2020 1:41 PM EDT Inhaled Oxygen Concentration - - Weight 66.7 kg (147 lb) 09/01/2020 1:41 PM EDT Height 165.1 cm (5' 5 ) 09/01/2020 1:41 PM EDT Body Mass Index 24.46 09/01/2020 1:41 PM EDT Plan of Treatment Health Maintenance Due Date Last Done Comments Hepatitis C Screening 1950 COVID-19 Vaccine (#1) 05/05/1953 Depression Screening 1964 Preventative Health Evaluation 1970 DTap / Tdap / Td (1 - Tdap) 11/04/1971 Colon Cancer Screening (Colonoscopy) 1997 Breast Cancer Screening (Mammogram) 2002 Shingrix-Zoster Vaccine (1 of 2) 2002 Fall Risk Assessment 2017 Osteoporosis Screening (DEXA Scan) 2017 Pneumococcal Vaccine (2 of 2 - PPSV23 or PCV20) 04/24/2020 04/24/2019 Influenza Vaccine (#1) 2024 RSV Adult > 60+ Yrs or Pregn ant (1 - 1-dose 75+ series) 11/04/2027 Hepatitis B Vaccines Aged Out No long er eligible based on patient's age to complete this topic RSV Ped < 20 months Aged Out No longe r eligible based on patient's age to complete this topic Care Teams Game Tester Relationship Specialty Start Date End Date Allie Gandara DO PCP - General Abstract Clerk 07/23/20
--- OUTSIDE RECORDS SUMMARY | 2024-08-22 12:00 | XMS_ITS | Encounter Summary ---
Author Organization [employer] Address [address] [facility] [address] [place] [address] Care Team Providers Care Diesel Engine Mechanic Apprentice Name Role Phone Dominique Nielsen MD Primary Care Provider [phone] Reason for Visit * Reason Comments Med Refill Encounter Details Date Type Department Care Team ([facility] st Contact Info) Description 10/18/2023 Refill [facility] CHC MED & PEDS [address] [place], [place] [phone] Dominique Nielsen MD [address] [place] [address] Primary hypertension Social History Tobacco Use Types Packs/Day Years Used Date Smoking Tobacco: Never Passive Smoke Exposure: Never Smokeless Tobacco: Never Alcohol Use Standard Drinks/Week Comments Never 0 (1 standard drink = 0.6 oz pur e alcohol) Depression Answer Date Recorded Patient Health Questionnaire-9 Score 0 08/28/2023 Patient Health Questionnaire-9 Score 0 08/28/2023 Last PHQ-9: Questionnaire Data Not on file 0 08/28/2023 Housing Stability Answer Date Recorded What is your housing situation today? I have juventino moe 08/28/[address] you li ve. Do you have problems with any of the following? None of the above 08/28/2023 Food Insecurity Answer Date Recorded Within the past 12 months, y ou worried that your food would run out before you got money to buy more: Never True 08/28/2023 Within the past 12 months,th e food you bought just didn't last and you didn't have enough money to get more: Never True Transportation Answer Date Recorded In the past 12 months, has l ack of transportation kept you from medical appts, meetings, work or from getting things needed for daily living? No 08/28/2023 Utilities Answer Date Recorded In the past 12 months, has t he electric, gas, oil or water company threatened to shut off services in your home? No 08/28/2023 Depression Answer Date Recorded Patient Health Questionnaire-2 Score 0 08/28/2023 Comments Unknown Sex and Gender Information Value Date Recorded Sex Assigned at Female 03/13/2022 10:39 AM EDT Legal Sex Female 10:39 AM EDT Gender Identity Female 03/13/2022 10:39 AM EDT Sexual Orientation Straight 03/13/2022 10 :39 AM EDT documented as of this encounter Plan of Treatment Not on file documented as of this encounter Visit Diagnoses Diagnosis Primary hypertension Unspecified essential hypertension documented in this encounter Additional Health Concerns Assessment Noted Time PHQ-9 Depression Total Score: 0 08/28/19 24 3:50 PM EDT documented as of this encounter Care Teams Diesel Engine Mechanic Apprentice Relationship Specialty Start Date End Date Dominique Nielsen MD [address] [place] [address] PCP - General Family Medicine 04/04/21 documented as of this encounter
--- OUTSIDE RECORDS SUMMARY | 2024-08-22 12:00 | XMS_ITS | Clinical Summary ---
Author Organization [facility] Address [address] [place] [address] Phone Care Team Providers Care Assistant Therapy Aide Name Role Phone Dominique Nielsen MD Primary Care Provider [phone] Allergies Active Allergy Reactions Criticality Noted Date Comments Aspirin Itching,Rash Low 01/17/2018 Face & neck redness Face and neck redness Penicillins Rash High 05/27/2022 Pollen Extracts 08/08/2024 Medications No known medications Active Problems No known active problems Encounters Date Type Department Care Team Description 08/08/2024 10:40 AM EDT - 08/08/2024 1:13 PM EDT Emergency [facility] Emergency [address] [place] [address] Dry eyes, bilateral (Primary Dx) Discharge Disposition: Home or Self Care from Last 3 Months Surgical History Surgery Date Site/Laterality Comments SECTION PROCEDURE: HISTORICAL DELIVERY HYSTERECTOMY PROCEDURE: HISTORICAL HYSTERECTOMY; COMMENT: due to fibroids Medical History Medical History Date Comments HTN (hypertension) 01/17/2018 DX:HTN (hyper tension) Allergic rhinitis 01/17/2018 DX:Allergic rh initis Varicose veins of both lower extremities 01/17/2018 DX:Varicose veins of both lo wer extremities Osteopenia 03/20/2018 DX:Osteopenia Urticaria 04/18/2018 DX:Urticaria Family History Medical History Relation Name Comments No Known Problems Father Hypertension Mother Thyroid disease Mother Relation Name Status Comments Father Mother Alive Social History Tobacco Use Types Packs/Day Years Used Date Smoking Tobacco: Never Smokeless Tobacco: Never Alcohol Use Standard Drinks/Week Comments No 0 (1 standard drink = 0.6 oz pur e alcohol) Comments Unknown Sex and Gender Information Value Date Recorded Sex Assigned at Female 08/08/2024 11:46 AM EDT Legal Sex Female 12:58 AM EST Gender Identity Female 08/08/2024 11:46 AM EDT Sexual Orientation Straight 08/08/2024 11 :46 AM EDT Obstetrics History Last Filed Vital Signs Vital Sign Reading Time Taken Comments Blood Pressure 149/69 08/08/2024 9:36 AM EDT Pulse 79 08/08/2024 9:36 AM EDT Temperature 36.6 ??C (97.9 ??F) 08/08/2024 9:36 AM ED T Respiratory Rate 18 08/08/2024 9:36 AM EDT Oxygen Saturation 98% 08/08/2024 9:36 AM EDT Inhaled Oxygen Concentration - - Weight 62.1 kg (137 lb) 08/08/2024 9:35 AM EDT Height 160 cm (5' 3 ) 08/08/2024 9:35 AM EDT Body Mass Index 24.27 08/08/2024 9:35 AM EDT Plan of Treatment Health Maintenance Due Date Last Done Comments Breast Cancer Screening 1952 Diabetes: Annual GFR (Glomerular Filtration Rate) 1952 Diabetes: Annual Foot Exam 1962 Diabetes: Annual Retina Eye Exam 1962 RSV Immunization Adult Patients (1 - Risk 60-74 years 1-dose series) 2012 Falls Risk Assessment 04/16/2022 Hepatitis C Screening 04/16/2022 Medicare Annual Wellness Visit 04/16/2022 Social Influencers of Health Screening 04/16/2022 Hypertension/CHF/CAD Annual BMP Blood Test 04/28/2022 Diabetes: Annual Urine Albumin-Creatinine Ratio (uACR) 10/18/2023 10/17/2022 COVID-19 Vaccine ( - 2023-2 5 season) 2024 Depression Screening 08/27/2024 08/28/2023 Diabetes: Blood Sugar Contro l Test (HGBA1C) 10/16/2024 04/17/2024 Influenza Vaccine (Season Ended) 2025 04/04/2021 Colorectal Cancer Screening: FIT-DNA (Cologuard) 05/26/2027 05/26/2024 Osteoporosis Screening (Bone Density Screening) 03/19/2028 03/19/2018 Cholesterol Screening (Lipid Panel) 12/11/2028 12/12/2023 DTaP,Tdap,and Td Vaccines (3 - Td or Tdap) 08/23/2031 08/22/2021, 10/27/2013 Pneumococcal Vaccine: 50+ Years Completed 11/22/2021, 04/24/2019 Zoster Vaccines Completed 11/22/2021, 08/22/2021 HIB Vaccines Aged Out No longer eligi ble based on patient's age to complete this topic HPV Vaccines Aged Out No longer eligi ble based on patient's age to complete this topic Hepatitis A Vaccines Aged Out No long er eligible based on patient's age to complete this topic Hepatitis B Vaccines Aged Out No long er eligible based on patient's age to complete this topic IPV Vaccines Aged Out No longer eligi ble based on patient's age to complete this topic MMR Vaccines Aged Out No longer eligi ble based on patient's age to complete this topic Meningococcal ACWY Vaccine Aged Out N o longer eligible based on patient's age to complete this topic Meningococcal B Vaccine Aged Out No l onger eligible based on patient's age to complete this topic RSV Immunization Patients Under 20 months Aged Out No longer eligible b ased on patient's age to complete this topic Varicella Vaccines Aged Out No longer eligible based on patient's age to complete this topic Procedures Procedure Name Priority Date/Time Associated Diagnosis Comments POCT GLUCOSE BLOOD Routine 08/08/2024 12 :37 PM EDT DXA BONE DENSITY STUDY 1+ SITS AXIAL SKEL Routine 03/19/2018 1:18 PM EST Thoracogenic scoliosis, thoracic region from Last 3 Months or Most Recently Relevant to Health Maintenance Results * (ABNORMAL) POCT Glucose, blood (08/08/2024 12:37 PM EDT) [facility] Glucose POCT 134(H) 70 - 100 mg/dL 08/10/2024 7:17 AM EDT [facility] Blood Capillary blood specimen / Unknown 08/08/2024 12:37 PM EDT 08/10/2024 7:18 AM EDT us Generic Provider Poct LAB POINT OF CARE TEST DOCKED DEVICE UNSOLICITED RESULTS Final Result MEHRDAD STEVEN [place] ([facility] [address] [place] [address], * DXA BONE DENSITY STUDY 1+ SITS AXIAL SKEL (03/19/2018 1:18 PM EST) Anatomical Region Laterality Modality Bone Densitometr y 01/17/2018 2:2 0 PM EDT Narrative 03/20/2018 1:51 PM EST BONE DENSITY ? Lumbar Spine T-score is -1.3 ?? (SD relative to 20-29 y/o adult) Z-score is +0.4 ??(SD relative to age matched peers) This is consistent with osteopenia by criteria defined by the WHO. Left Hip T-score is -0.1 Z-score is +1.4 This is normal by criteria defined by the WHO. Impression: Based on the World Health Organization criteria, Raeann Rivera should be classified as having osteopenia. This patient has a 7.8% risk of major osteoporotic fracture and a 0.2% risk of hip fracture over the next 10 years. (World Health Organization Fracture Risk Assessment) [facility] [facility] Department of Internal Medicine recommends using National Osteoporosis Foundation (NOF) guidelines in treatment decisions related to osteoporosis. NOF guidelines suggest considering treatment for postmenopausal women and men aged 50 or older presenting with the following: History of hip or vertebral fracture. T-score less than or equal to -2.5 (DXA) at the femoral neck, total hip, or spine, after appropriate evaluation to exclude secondary causes. Low bone mass (T-score between -1.0 and -2.5 at the femoral neck or spine) AND a 10-year probability of a hip fracture greater than or equal to 3% OR a 10-year probability of a major osteoporosis-related fracture greater than or equal to 20% based on the [place]-adapted WHO algorithm Please note that all treatment decisions require clinical judgment and consideration of individual patient factors, including patient preferences, co-morbidities, previous drug use, risk factors not captured in the FRAX model (e.g., frailty, falls, vitamin D deficiency, increased bone turnover, interval significant decline in bone density) and possible under- or over-estimation of fracture risk by FRAX. Procedure Note Abrahan Conde MD - 05/02/2022 BONE DENSITY Lumbar Spine T-score is -1.3 (SD relative to 20-29 y/o adult) Z-score is +0.4 (SD relative to age matched peers) This is consistent with osteopenia by criteria defined by the WHO. Left Hip T-score is -0.1 Z-score is +1.4 This is normal by criteria defined by the WHO. Impression: Based on the World Health Organization criteria, Raeann Nortonould be classified as having osteopenia. This patient has a 7.8% risk ofmajor osteoporotic fracture and a 0.2% risk of hip fracture over the next10 years. (World Health Organization Fracture Risk Assessment) [facility] [facility] Department of Internal Medicine recommendsusing National Osteoporosis Foundation (NOF) guidelines in treatmentdecisions related to osteoporosis. NOF guidelines suggest consideringtreatment for postmenopausal women and men aged 50 or older presentingwith the following: History of hip or vertebral fracture. T-score less than or equal to -2.5 (DXA) at the femoral neck, total hip,or spine, after appropriate evaluation to exclude secondary causes. Low bone mass (T-score between -1.0 and -2.5 at the femoral neck or spine)AND a 10-year probability of a hip fracture greater than or equal to 3% ORa 10-year probability of a major osteoporosis-related fracture greaterthan or equal to 20% based on the [place]-adapted WHO algorithm Please note that all treatment decisions require clinical judgment andconsideration of individual patient factors, including patientpreferences, co-morbidities, previous drug use, risk factors not capturedin the FRAX model (e.g., frailty, falls, vitamin D deficiency, increasedbone turnover, interval significant decline in bone density) and possibleunder- or over-estimation of fracture risk by FRAX. Ponce Dumont MD IMG DXA PROCEDURES Georgiana l Result from Last 3 Months or Most Recently Relevant to Health Maintenance Insurance MEDICAID - [place] [facility] [employer] Member Subscriber Plan / Payer (Ef fective 2024-Present) Name:Raeann Tejada Relation to Subscriber:Self Name:Raeann Tejada Payer ID:[id number] Group ID:Not on file Type:Not on file Address: [facility] [address] [id number] Care Teams Assistant Therapy Aide Relationship Specialty Start Date End Date Dominique Nielsen MD [address] [place] [address] PCP - General 12/19/21
--- OUTSIDE RECORDS SUMMARY | 2024-08-22 12:00 | XMS_ITS | Encounter Summary ---
Author Organization [employer] Address [address] [place] [address] [address] [place] [address] Care Team Providers Care Rehab Liaison Name Role Phone Dominique Nielsen MD Primary Care Provider [phone] Reason for Visit * Reason Onset Date Comments Med Refill 08/18/2024 Encounter Details Date Type Department Care Team ([facility] st Contact Info) Description 08/18/2024 Refill [facility] CHC MED & PEDS [address] [place] [address] Dominique Nielsen MD [address] [place] [address] Primary hypertension Social History Tobacco Use Types Packs/Day Years Used Date Smoking Tobacco: Never Passive Smoke Exposure: Never Smokeless Tobacco: Never Alcohol Use Standard Drinks/Week Comments Never 0 (1 standard drink = 0.6 oz pur e alcohol) Alcohol Answer Date Recorded Q1: How often do you have a drink containing alc ohol? 2 04/17/2024 Q2: How many drinks containi ng alcohol do you have on a typical day when you are drinking? 0 04/17/2024 Q3: How often do you have six or more drinks on one occasion? 1 04/17/2024 Depression Answer Date Recorded Patient Health Questionnaire-9 [...] Answer Date Recorded Patient Health Questionnaire-2 Score 2 04/17/2024 Comments Unknown Sex and Gender Information Value [...] documented as of this encounter Care Teams Rehab Liaison Relationship Specialty Start Date End Date Dominique Nielsen MD [address] [place] [address] PCP - General Family Medicine 04/04/21 documented as of this encounter
--- OUTSIDE RECORDS SUMMARY | 2024-08-22 12:00 | XMS_ITS | Encounter Summary ---
Author Organization [employer] Address [address] [facility] [address] [place] [address] Care Team Providers Care Golf Shoe Spike Assembler Name Role Phone Dominique Nielsen MD Primary Care Provider [phone] Encounter Details Date Type Department Care Team (Latest Contact Info) Description 08/20/2024 Travel Social History Tobacco Use Types Packs/Day Years [...] Diagnoses Not on filedocumented in this encounter Additional Health Concerns Assessment Noted Time PHQ-9 Depression Total Score: 0 08/28/19 24 3:50 PM EDT documented as of this encounter Care Teams Golf Shoe Spike Assembler Relationship Specialty Start Date End Date Dominique Nielsen MD [address] [place] [address] PCP - General Family Medicine 04/04/21 documented as of this encounter
--- OUTSIDE RECORDS SUMMARY | 2024-08-22 12:00 | XMS_ITS | Encounter Summary ---
Author Organization [facility] Address [address] [place] [address] Care Team Providers Care Compressor Service Technician Name Role Phone Allie Gandara DO Primary Care Pro vider Gregory Dee MD Primary Care Provider Dominique Santos MD Primary Care Provider Zulema henry Reason for Visit * Reason Onset Date Comments APPOINTMENT 08/01/2019 Encounter Details Date Type Department Care Team Description 08/01/2019 Telephone Adult Medicine [address] [address] Allie Gandara DO APPOINTMENT Social History Tobacco Use Types Packs/Day Years [...] encounter Miscellaneous Notes * Telephone Encounter - Tiny Rees - 08/01/2019 12:37 PM EDT Patient came in, explained what pcp said, rescheduled patient with pcp 11/04/19 * Telephone Encounter - Rosa Giron L.P.N. - 08/01/2019 10:50 AM EDT Message left for patient' s daughter Marangely to call re appt today Rosa Giron L.P.NEduardo * Telephone Encounter - Apoorva Davey M.A. - 08/01/2019 8:35 AM EDT Message left asking pt to call prior to coming in for today appt. Per pcp pt was just seen 07/18/19, pt does not need to come in today If no new changes since last ov documented in this encounter Plan of Treatment Not on file documented as of this encounter Visit Diagnoses Not on filedocumented in this encounter Care Teams Compressor Service Technician Relationship Specialty Start Date End Date Allie Gandara DO PCP - General Internal Medicine 04/18/19 01/30/21 Gregory Underwood MD PCP - General Internal Medicine 01/31/21 12/18/21 Dominique Nielsen MD PCP - General Family Practice 12/19/21 documented as of this encounter
--- OUTSIDE RECORDS SUMMARY | 2024-08-22 12:00 | XMS_ITS | Encounter Summary ---
Author Organization [employer] Address [address] [facility] [address] [place] [address] Care Team Providers Care Commercial Estimator Name Role Phone Dominique Nielsen MD Primary Care Provider [phone] Encounter Details Date Type Department Care Team ([facility] st Contact Info) Description 08/20/2024 2:45 PM EDT Office Visit [facility] OPTOMETRY [address] [place], [place] [phone] TarkaCarlita, OD [address] [place], [place] [id number] Dry eyes, bilateral (Primary Dx); Meibomian gland dysfunction (MGD) of upper and lower lids of both eyes Social History Tobacco Use Types Packs/Day Years [...] AM EDT documented as of this encounter Progress Notes * Carlita Vera, OD - 08/20/2024 2:45 PM EDT Eye Care Progress Note Patient ID: Raeann Rivera is a 73 y.o. female. HPI Patient presents for dry eye follow up. Patient has been using Pred QID both eyes (OU) x 1 week and reports improvement in symptoms. Patient reports there is still pain in right eye (OD). Patient states that pain has decreased from 6/10 to4/10. Patient is also using Systane ATs BID both eyes (OU), artificial tear enmanuel at bedtime OU, cyclosporine BID both eyes (OU). Last edited by Carlita Vera, OD on 08/20/2024 2:59 PM. Current Outpatient Medications Medication Sig Dispense Refill Acetaminophen 500 MG capsule Take 2 capsules (1,000 mg) by mouth every 8 (eight) hours. 60 capsule 0 amLODIPine (Norvasc) 10 MG tablet TAKE 1 TABLET BY MOUTH IN THE MORNING 90 tablet 1 amLODIPine (Norvasc) 10 MG tablet TAKE 1 TABLET BY MOUTH IN THE MORNING 90 tablet 1 atorvastatin (Lipitor) 40 MG tablet TAKE 1 TABLET BY MOUTH EVERY DAY 90 tablet 1 betamethasone dipropionate (Diprolene) 0.05 % ointment APPLY TO THE AFFECTED AREA ON THE LEGS AND ARRMS TWICE DAILY FOR 2 WEEK Calcium Carb-Cholecalciferol 600-10 MG-MCG tablet Take 1 tablet by mouth. carvedilol (Coreg) 12.5 MG tablet Take 1 tablet (12.5 mg) by mouth with breakfast and with evening meal. 60 tablet 11 cetirizine (ZyrTEC) 10 MG tablet TAKE 1 TABLET BY MOUTH IN THE MORNING 90 tablet 1 chlorthalidone (Hygroton) 25 MG tablet Take 1 tablet (25 mg) by mouth in the morning. 90 tablet 1 cholecalciferol (Vitamin D-3) 50 MCG (2000 UT) tablet Take 1 tablet by mouth at bed time. clonazePAM (KlonoPIN) 0.5 MG tablet Take 1 tablet (0.5 mg) by mouth if needed each day for anxiety.Preprocedure anxiety, take 1 tablet 30 minutes before intended procedure 1 tablet 0 cycloSPORINE (Restasis) 0.05 % ophthalmic emulsion Administer 1 drop into both eyes 2 times daily. 60 mL 11 doxepin (SINEquan) 25 MG capsule TAKE 1 CAPSULE(25 MG) BY MOUTH AT BEDTIME 90 capsule 1 FREESTYLE LITE test strip 1 each by Other route 2 times daily. 100 each 11 furosemide (Lasix) 20 MG tablet Take 10 mg by mouth in the morning. furosemide (Lasix) 20 MG tablet Take 1 tablet (20 mg) by mouth Once per day. 30 tablet 2 glucose blood (FREESTYLE LITE) test strip 1 each every 12 (twelve) hours. halobetasol (UltraVATE) 0.05 % ointment Apply topically 2 times daily. 50 g 0 Lancets misc 1 Units 2 times daily. 100 each 11 levothyroxine (Synthroid) 25 MCG tablet Take 1 tablet (25 mcg) by mouth before breakfast. 30 losartan (Cozaar) 100 MG tablet Take 1 tablet (100 mg) by mouth Once per day. 90 tablet 2 miconazole (Micatin) 2 % cream Apply topically 2 times daily. 35 g 0 Minoxidil 5 % solution apply 1/2 cupful of minoxidil 5% foam once daily in the morning 200 mL 3 naproxen (EC Naprosyn) 500 MG EC tablet Take 1 tablet (500 mg) by mouth 2 times daily. 60 tablet 0 olopatadine (Patanol) 0.1 % ophthalmic solution Administer 1 drop into both eyes 2 times daily. 5 mL 2 pantoprazole (ProtoNix) 40 MG EC tablet TAKE 1 TABLET(40 MG) BY MOUTH BEFORE BREAKFAST. DO NOT CRUSH, CHEW, OR SPLIT 90 tablet 1 prednisoLONE acetate (Pred-Forte) 1 % ophthalmic suspension Administer 1 drop into both eyes 4 times daily for 14 days. 5 mL 0 silver sulfADIAZINE (Silvadene) 1 % cream Apply topically 2 times daily. 400 g 0 spironolactone (Aldactone) 25 MG tablet TAKE 1 TABLET(25 MG) BY MOUTH IN THE MORNING 90 tablet 1 terbinafine (LamISIL AT) 1 % cream Apply topically 2 times daily. 90 g 0 triamcinolone (Kenalog) 0.1 % ointment Apply topically 2 times daily. 30 g 0 No current facility-administered medications for this visit. History reviewed. No pertinent past medical history. History reviewed. No pertinent surgical history. No family history on file. Tobacco Use: Low Risk (08/20/2024) Tobacco Smoking Tobacco Use: Never Smokeless Tobacco Use: Never Passive Exposure: Never Allergies Allergen Reactions Gramineae Pollens Aspirin Rash Penicillins Rash ROS Positive for: Eyes Negative for: Constitutional, Gastrointestinal, Neurological, Skin, Genitourinary, Musculoskeletal,HENT, Endocrine, Cardiovascular, Respiratory, Psychiatric, Allergic/Imm, Heme/Lymph Last edited by Carlita Vera OD on 08/20/2024 2:58 PM. Base Eye Exam Visual Acuity (Snellen - Linear) Right Left Dist cc 20/25+2 20/30+2 Tonometry (iCare , 2:36 PM) Right Left Pressure 13 13 Pupils Pupils APD Right PERRL None Left PERRL None Visual Moreno Left Right Full Full Extraocular Movement Right Left Full Full Neuro/Psych Oriented x3: Yes Slit Lamp and Fundus Exam External Exam Right Left External Normal Normal Slit Lamp Exam Right Left Lids/Lashes 4+ MGD inferior w/ lid margin telangectasias, inspissated glands UL/LL, 1+ blepharitis UL 4+ MGD inferior w/ lid margin telangectasias, inspissated glands UL/LL, 1+ blepharitis UL Conjunctiva/Sclera Tr bulbar injection Tr bulbar injection Cornea tr interpalpebral SPK, TBUT instant 1+ interpalpebral SPK, TBUT instant Anterior Chamber Deep and quiet, angles open g r3 Deep and quiet, angles open gr 3 Iris Flat, round Flat, round Lens Clear Clear Assessment and Plan Diagnoses and all orders for this visit: Dry eyes, bilateral - Continue using Systane ATs BID OU, artificial tear enmanuel QHS OU, warm compresses BID and eyelid scrub with baby shampoo, Restasis BID both eyes (OU) - Continue Pred Acetate 1gtt QID both eyes (OU) x 1 week then discontinue Meibomian gland dysfunction (MGD) of upper and lower lids of both eyes - Severe meibomian gland dysfunction (MGD) without significant corneal staining - Discussed option of initiating Doxycycline if symptoms persist with topical treatments however advised that treatment course will be greater than 1 month and there can be GI side effects Advised to RTC if symptoms return/worsen/persist after discontinuing steroid drop. Carlita Vera, OD 08/20/2024, 2:59 PM Engineer Second Assistant Source: __ None _x_ Bilingual Staff __ Qualified Staff Clearance Rep __ Telephone Engineer Second Assistant; ID# __ Engineer Second Assistant brought by patient (family member, friend, [employer], etc) __ In person spanish medical interpreter __ Ipad Engineer Second Assistant; ID#: Language Spoken During Exam: Welsh documented in this encounter Plan of Treatment Not on file documented as of this encounter Visit Diagnoses Diagnosis Dry eyes, bilateral- Primary Meibomian gland dysfunction (MGD) of upper and lower lids of both eyes documented in this encounter Additional Health Concerns Assessment Noted Time PHQ-9 Depression Total Score: 0 08/28/19 24 3:50 PM EDT documented as of this encounter Care Teams Commercial Estimator Relationship Specialty Start Date End Date Dominique Nielsen MD [address] [place] [address] PCP - General Family Medicine 04/04/21 documented as of this encounter
--- OUTSIDE RECORDS SUMMARY | 2024-08-22 12:00 | XMS_ITS | Encounter Summary ---
Author Organization [employer] Address [address] [facility] [address] [place] [address] Care Team Providers Care Assistant Printer Floor Covering Name Role Phone Dominique Nielsen MD Primary Care Provider [phone] Reason for Visit * Reason Onset Date Comments Med Refill 10/18/2023 Encounter Details Date Type Department Care Team ([facility] st Contact Info) Description 10/18/2023 Refill [facility] PEDS [address] [place] [address] Dominique Nielsen MD [address] [place] [address] Primary hypertension Social History Tobacco Use Types [...] documented as of this encounter Care Teams Assistant Printer Floor Covering Relationship Specialty Start Date End Date Dominique Nielsen MD [address] [place] [address] PCP - General Family Medicine 04/04/21 documented as of this encounter
--- OUTSIDE RECORDS SUMMARY | 2024-08-22 12:00 | XMS_ITS | Encounter Summary ---
Author Organization [employer] Address [address] [facility] [address] [place] [address] Care Team Providers Care Warehouse Operator Name Role Phone Dominique Nielsen MD Primary Care Provider [phone] Reason for Visit * Reason Onset Date Comments callback requested 04/28/2024 Encounter Details Date Type Department Care Team ([facility] Contact Info) Description 04/28/2024 Telephone [facility] MEDICINE [address] [place] [address] Dominique Nielsen MD [address] [place] [phone] callback requested Social History Tobacco Use Types Packs/Day Years [...] AM EDT documented as of this encounter Miscellaneous Notes * Telephone Encounter - Christina Rivera - 04/28/2024 12:11 PM EST Tc from Daughter requesting a callback as pt received something from [facility] like for a lab test but she's unknown of what she receive. Callback number [phone] documented in this encounter Plan of Treatment Not on file documented as of this encounter Visit Diagnoses Not on filedocumented in this encounter Additional Health Concerns Assessment Noted Time PHQ-9 Depression Total Score: 0 08/28/19 24 3:50 PM EDT documented as of this encounter Care Teams Warehouse Operator Relationship Specialty Start Date End Date Dominique Nielsen MD [address] [place] [address] PCP - General Family Medicine 04/04/21 documented as of this encounter
--- OUTSIDE RECORDS SUMMARY | 2024-08-22 12:00 | XMS_ITS | Encounter Summary ---
Author Organization [facility] Address [address] [place] [address] Care Team Providers Care Ammonium Nitrate Crystallizer Name Role Phone Ponce Dumont MD Primary Care Provider Un available Allie Gandara DO Primary Care Pro vider Unavailable Gregory Underwood MD Primary Care Provider Dominique Santos MD Primary Care Provider Zulema henry Encounter Details Date Type Department Care Team Description 01/22/2018 Orders Only Adult Medicine [address] [address] Ponce Dumont MD Elevated glucose (Primary Dx) Social History Tobacco Use Types Packs/Day Years [...] on file documented as of this encounter Results * (ABNORMAL) HEMOGLOBIN A1C (01/28/2018 11:09 AM EDT) Glycosylated Hemoglobin A1C 6.3(H) 4.0 - 6.0 % 01/28/2018 11:39 AM EDT [facility] Comment: HbA1C VALUES MAY NOT ACCURATELY REFLECT MEAN BLOOD GLUCOSE IN PATIENTS WITH HEMOGLOBIN VARIANTS SUCH HbF, HbS. 01/28/2018 11:0 9 AM EDT 01/28/2018 11:10 AM EDT Ponce Dumont MD LAB Performing Organization Address City/State/[facility] Co de Phone Number [address] documented in this encounter Visit Diagnoses Diagnosis Elevated glucose- Primary Other abnormal glucose documented in this encounter Care Teams Ammonium Nitrate Crystallizer Relationship Specialty Start Date End Date Ponce Dumont MD PCP - General Internal Medicine 10/23/17 Allie Gandara DO PCP - General Internal Medicine 04/18/19 01/30/21 Gregory Underwood MD PCP - General Internal Medicine 01/31/21 12/18/21 Dominique Nielsen MD PCP - General Family Practice 12/19/21 documented as of this encounter
--- OUTSIDE RECORDS SUMMARY | 2024-08-22 12:00 | XMS_ITS | Clinical Summary ---
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 1420 TD/TT: Compressor Station Chief Engineer: Dominique Nielsen MD IMG BI PROCEDURES Final Resul t * Albumin, Random Urine W/O Creatinine (10/17/2022 8:35 AM EDT) Albumin, Urine 8.7 See Note: mg/dL [facility] [place] [facility] Comment: Reference Range: Reference Range Not established [facility] [employer] [place] [facility] Comment: The ADA defines abnormalities in albumin excretion as follows: Albuminuria Category ? Result (mcg/mg creatinine) Normal to Mildly increased ?<30 Moderately increased ?30-299 Severely increased ?> OR = 300 The ADA recommends that at least two of three specimens collected within a 3-6 month period be abnormal before considering a patient to be within a diagnostic category. Urine Urine specimen obtained by clean catch procedure / Unknown 10/17/2022 8:35 AM EDT 10/17/2022 8:35 AM EDT Narrative [facility] - 10/18/2022 5:07 PM EDT FASTING:YES FASTING: YES Dominique Nielsen MD LAB URINE ORDERABLES Final Re sult [facility] [address], [place] [address] [employer] [place] [facility] [address] [place] [phone] * HEPATITIS C AB W/REFL TO HCV RNA, QN, PCR (08/03/2021 8:53 AM EDT) HEPATITIS C ANTIBODY NON-REACT JAS NON-REACT JAS [facility] INDEX 0.01 <1.00 [facility] Comment: ?? HCV antibody was non-reactive. There is no laboratory ?? evidence of HCV infection. ?? In most cases, no further action is required. However, if recent HCV exposure is suspected, a test for HCV RNA (test code 43666) is suggested. ?? For additional information please refer to http://education.Blippar/faq/CCM78f3 (This link is being provided for informational/ educational purposes only.) ?? 08/03/2021 8:53 AM EDT Dominique Nielsen MD HISTORICAL/NON ORDERABLE LABS Final Result [facility] [address] from Last 3 Months or Most Recently Relevant to Health Maintenance Insurance [facility] Care Teams Manager Coding Relationship Specialty Start Date End Date Dominique Nielsen MD [address] [place] [address] PCP - General Family Medicine 04/04/21
--- OUTSIDE RECORDS SUMMARY | 2024-08-22 12:00 | XMS_ITS | Clinical Summary ---
Author Organization [facility] Address [address] [place] [address] Care Team Providers Care Juice Packaging Machines Setter Name Role Phone Dominique Nielsen MD Primary Care Provider Zulema henry Allergies Active Allergy Reactions Severity Noted Date Comments Aspirin 01/17/2018 Face & neck redness Penicillin G 01/17/2018 Face & neck redness Medications Medication Sig Dispensed Refills Start Date End Date Status triamcinolone (KENALOG) 0.1 % lotion Apply topically 2 times daily as needed. 0 Active loratadine (CLARITIN) 10 MG tablet Take 1 Tab by mouth daily. 0 Active Calcium Carbonate-Vitamin D3 600-400 MG-UNIT Tab Take 1 Tab by mouth 2 times daily. 60 Tab 11 04/18/2018 Active Blood Glucose Monitoring Suppl (FREESTYLE LITE) Device Test blood sugar once daily 1 Device 0 05/01/2019 Active FREESTYLE LANCETS Misc Test blood sugar once daily 100 Each 1 05/01/2019 Active Glucose Blood (FREESTYLE LITE) Strip USE TO TEST BLOOD SUGAR ONCE DAILY 100 Strip 1 10/21/2019 Active amlodipine (NORVASC) 10 MG tablet TAKE 1 TABLET BY MOUTH DAILY 90 tablet 0 01/26/2021 Active losartan (COZAAR) 25 MG tablet Take 1 tablet by mouth daily. 15 tablet 0 03/29/2021 Active acetaminophen (Acetaminophen 8 Hour) 650 MG CR tablet Take 1 Tablet by mouth every 8 hours as needed for Pain for up to 30 days. 60 Tablet 0 09/06/2022 Active triamcinolone acetonide (KENALOG-40) 40 MG/ML injection 1 mL by Other route once for 1 dose. 1 mL 0 12/25/2022 Active Active Problems Problem Noted Date Microalbuminuria 07/21/2019 DM (diabetes mellitus), type 2 with angella l complications 07/21/2019 High triglycerides 05/01/2019 Type 2 diabetes mellitus 04/28/2019 Overview: Not on medication. A1C 6.7 on 04/24/19 Urticaria 04/18/2018 Osteopenia 03/20/2018 HTN (hypertension) 01/17/2018 Allergic rhinitis 01/17/2018 Varicose veins of both lower extremities 01/17/2018 Kyphosis of thoracic region 01/17/2018 Resolved Problems Problem Noted Date Resolved Date Prediabetes 04/24/2019 05/01/2019 Immunizations Name Administration Dates Next Due Pneumococcal Conjugate PCV-13 04/24/2019 Family History Medical History Relation Name Comments No Known Problems Father Hypertension Mother Thyroid Disorder Mother Relation Name Status Comments Father Mother Alive Social History Tobacco Use Types Packs/Day Years Used Date Smoking Tobacco: Never Smokeless Tobacco: Never Tobacco Cessation:Counseling Given: Not Answered Alcohol Use Standard Drinks/Week Comments No 0 [...] Assigned at Date Recorded Not on file Last Filed Vital Signs Vital Sign Reading Time Taken Comments Blood Pressure 161/61 02/22/2022 10:08 AM EDT Pulse 74 07/18/2019 9:05 AM EST Temperature 36.7 ??C (98.1 ??F) 06/11/2020 11:[address] Respiratory Rate 12 07/18/2019 9:05 AM EST Oxygen Saturation 99% 07/18/2019 9:05 AM EST Inhaled Oxygen Concentration - - Weight 64 kg (141 lb) 02/13/2023 2:24 PM EDT Height 160 cm (5' 3 ) 02/13/2023 2:24 PM EDT Body Mass Index 24.98 02/13/2023 2:24 PM EDT Plan of Treatment Health Maintenance Due Date Last Done Comments Covid-19 Vaccine (#1) 05/05/1951 DIABETES: ANNUAL EYE EXAM 1970 DIABETES: ANNUAL FOOT EXAM 1970 HEPATITIS C SCREENING 1970 MAMMOGRAM 1992 SHINGLES VACCINE (1 of 2) 2002 BONE DENSITY SCREENING 03/19/2020 03/19/2018 DIABETES: BLOOD SUGAR CONTRO L TEST (HGBA1C) 10/06/2020 07/09/2020, 04/24/2019, 01/28/2018 DIABETES/HEART DISEASE: PRISCILA AL CHOLESTEROL (LDL) 07/09/2021 07/09/2020, 04/24/2019, 01/17/2018 DIABETES: ANNUAL URINE PROTE IN TEST (MICROALBUMIN) 07/09/2021 07/09/2020, 07/18/2019 INFLUENZA (Season Ended) 2025 COLON CANCER SCREENING 06/23/2029 06/23/2019 DTAP/TDAP/TD (2 - Td or Tdap) 08/23/2031 08/22/2021 PNEUMOCOCCAL VACCINE Completed 11/22/2021, 04/24/20 19 Care Teams Juice Packaging Machines Setter Relationship Specialty Start Date End Date Dominique Nielsen MD PCP - General Family Practice 8/8/22
--- OUTSIDE RECORDS SUMMARY | 2024-08-22 12:00 | XMS_ITS | Encounter Summary ---
Author Organization [facility] Address [address] [place] [address] Care Team Providers Care Bowling Alley Mechanic Name Role Phone Dominique Nielsen MD Primary Care Provider Zulema henry Encounter Details Date Type Department Care Team Description 11/20/2022 SCAN [facility] Medical [facility] [address] [facility] [address] [place] [address] Guillermina Gray APRN Social History Tobacco Use Types Packs/Day Years [...] on filedocumented in this encounter Care Teams Bowling Alley Mechanic Relationship Specialty Start Date End Date Dominique Nielsen MD PCP - General Family Practice 12/19/21 documented as of this encounter
--- OUTSIDE RECORDS SUMMARY | 2024-08-22 12:00 | XMS_ITS | Encounter Summary ---
Author Organization [employer] Address [address] [place] [address] 7 [place] [address] Care Team Providers Care Apparel Merchandiser Name Role Phone Dominique Nielsen MD Primary Care Provider [phone] Reason for Referral * Imaging (Routine) - Pending Review Specialty Diagnoses / Procedures Referred By Contac t Referred To Contact Radiology Diagnoses Cognitive impairment Procedures MRA Head w/o Contrast Alexis Clinton MD [address] [place] [address] Phone: tel: fax: [address] Phone: tel: fax: Referral ID Status Reason Start Date Expiration Date V isits Requested Visits Authorized [id number] Pending Review 08/22/2024 08/22/2025 1 1 Encounter Details Date Type Department Care Team (Late st Contact Info) Description 08/22/2024 Orders Only [facility] PEDS [address] [place] [address] Alexis Clinton MD [address] [place] [address] Cognitive impairment (Primary Dx) Social History Tobacco Use Types [...] as of this encounter Plan of Treatment Scheduled Orders Name Type Priority Associated Diagnoses Orde r Schedule Vitamin B12/Folate, Serum Panel Lab Routine Cognitive impairment Expected: 08/22/2024, Expires: 08/22/2025 TSH W/Reflex to FT4 Lab Routine Cognitive impairment Expected: 08/22/2024 (Approximate), Expires: 08/22/2025 MRA Head w/o Contrast Imaging Routine Cognitive impairment Expected: 08/22/2024, Expires: 08/22/2025 documented as of this encounter Visit Diagnoses Diagnosis Cognitive impairment- Primary Unspecified persistent mental disorders due to conditions classified elsewhere documented in this encounter Additional Health Concerns Assessment Noted Time PHQ-9 Depression Total Score: 0 08/28/19 24 3:50 PM EDT documented as of this encounter Care Teams Apparel Merchandiser Relationship Specialty Start Date End Date Dominique Nielsen MD [address] [place] [address] PCP - General Family Medicine 04/04/21 documented as of this encounter
--- OUTSIDE RECORDS SUMMARY | 2024-08-22 12:00 | XMS_ITS | Encounter Summary ---
Author Organization [facility] Address [address] [place] [address] Care Team Providers Care Bark Tanner Name Role Phone Dominique Nielsen MD Primary Care Provider Zulema henry Encounter Details Date Type Department Care Team Description 08/16/2022 SCAN [facility] Medical [facility] [address] [facility] [address] [place] [address] Guillermina Gray APRN Social History [...] on filedocumented in this encounter Care Teams Bark Tanner Relationship Specialty Start Date End Date Dominique Nielsen MD PCP - General Family Practice 12/19/21 documented as of this encounter
--- OUTSIDE RECORDS SUMMARY | 2024-08-22 12:00 | XMS_ITS | Encounter Summary ---
Author Organization [facility] Address [address] [place] [address] Care Team Providers Care Sample Sawyer Name Role Phone Allie Gandara DO Primary Care Pro vider Gregory Dee MD Primary Care Provider Dominique Santos MD Primary Care Provider Zulema henry Encounter Details Date Type Department Care Team Description 07/04/2019 Transfer Records Medical Records [address] [place] [address] Abstract, Provider Social History Tobacco Use Types [...] on filedocumented in this encounter Care Teams Sample Sawyer Relationship Specialty Start Date End Date Allie Gandara DO PCP - General Internal Medicine 04/18/19 01/30/21 Gregory Underwood MD PCP - General Internal Medicine 01/31/21 12/18/21 Dominique Nielsen MD PCP - General Family Practice 12/19/21 documented as of this encounter
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
--- OUTSIDE RECORDS SUMMARY | 2024-08-22 12:01 | XMS_ITS | Encounter Summary ---
Author Organization [facility] Address [address] [place] [address] Care Team Providers Care Firer Tunnel Kiln Name Role Phone Allie Gandara DO Primary Care Pro vider Gregory Dee MD Primary Care Provider Dominique Santos MD Primary Care Provider Zulema henry Encounter Details Date Type Department Care Team Description 05/26/2020 Orders Only Medical Records [address] [place] [address] Kathia Johnson MD [address] [place] [phone] Social History Tobacco Use Types Packs/Day Years [...] on file documented as of this encounter Procedures Procedure Name Priority Date/Time Associated Diagnosis Comments OUTSIDE PATHOLOGY Routine 05/21/2020 documented in this encounter Results * OUTSIDE PATHOLOGY (05/21/2020) Kathia Johnson MD OUTSIDE LAB documented in this encounter Visit Diagnoses Not on filedocumented in this encounter Care Teams Firer Tunnel Kiln Relationship Specialty Start Date End Date Allie Gandara DO PCP - General Internal Medicine 04/18/19 01/30/21 Gregory Underwood MD PCP - General Internal Medicine 01/31/21 12/18/21 Dominique Nielsen MD PCP - General Family Practice 12/19/21 documented as of this encounter
--- OUTSIDE RECORDS SUMMARY | 2024-08-22 12:01 | XMS_ITS | Encounter Summary ---
Author Organization [facility] Address [address] [place] [address] Care Team Providers Care Environmental Compliance Manager Name Role Phone Gregory Underwood MD Primary Care Provider Dominique Santos MD Primary Care Provider Zulema henry Encounter Details Date Type Department Care Team Description 11/22/2021 Fac Engineer Report Medical Records [address] [place] [address] Dominique Nielsen MD Social History Tobacco Use Types Packs/Day Years [...] on filedocumented in this encounter Care Teams Environmental Compliance Manager Relationship Specialty Start Date End Date Gregory Underwood MD PCP - General Internal Medicine 01/31/21 12/18/21 Dominique Nielsen MD PCP - General Family Practice 12/19/21 documented as of this encounter
--- OUTSIDE RECORDS SUMMARY | 2024-08-22 12:01 | XMS_ITS | Encounter Summary ---
Author Organization [facility] Address [address] [place] [address] Care Team Providers Care Anodize Machine Operator Name Role Phone Allie Gandara DO Primary Care Pro vider Unavailable Gregory Underwood MD Primary Care Provider Dominique Santos MD Primary Care Provider Zulema henry Reason for Referral * EXTERNAL (Routine) - Authorized/Booked Specialty Diagnoses / Procedures Referred By Contac t Referred To Contact Oncology/Hematology Procedures REFERRAL TO ONCOLOGY/HEMATOLOGY (IN NETWORK) Allie Gandara DO [address] [place] [address] Lety Monteiro MD [facility] [address] [place] [address] Referral ID Status Reason Start Date Expiration Date V isits Requested Visits Authorized [id number] Authorized/B ooked 07/15/2020 10/16/2020 1 1 Encounter Details Date Type Department Care Team Description 07/15/2020 Orders Only Adult Medicine [address] [address] Allie Gandara DO Social History Tobacco Use Types Packs/Day Years [...] Exposure Response Date Recorded In the last month, have you been in contact with someone who was confirmed or suspected to have Coronavirus / COVID-19? No / Unsure 07/09/2020 8:08 AM EST documented as of this encounter Plan of Treatment Not on file documented as of this encounter Visit Diagnoses Not on filedocumented in this encounter Care Teams Anodize Machine Operator Relationship Specialty Start Date End Date Allie Gandara DO PCP - General Internal Medicine 04/18/19 01/30/21 Gregory Underwood MD PCP - General Internal Medicine 01/31/21 12/18/21 Dominique Nielsen MD PCP - General Family Practice 12/19/21 documented as of this encounter
[2024-08-22 14:47] LABS: Anion Gap 14 (12-20); Blood Urea Nitrogen 23 mg/dL (9-16); Calcium 9.4 mg/dL (8.4-10.2); Carbon Dioxide 23 mmol/L (22-29); Chloride 110 mmol/L (96-108); Estimated Glomerular Filt Rate > 60; Glucose Random 120 mg/dL (60-115); Sodium 143 mmol/L (135-145)
[2024-08-22 15:03] LABS: TSH reflex Free T4 3.35 uIU/mL (0.32-4.0)
[2024-08-22 15:17] LABS: Folate 11.9 ng/mL (> or = 4.0); Vitamin B12 372 pg/mL (200-900)
== END 2024-08-22 11:03 | disposition home or self-care (01) ==
LOC: HO.CHCLDS 11:02
PROVIDERS: Visit Provider Internal Medicine
DX: I10 Essential (primary) hypertension (principal); R41.89 Other symptoms and signs involving cognitive functions and awareness
CPT/HCPCS: 36415; 80048; 82607; 82746; 84443

== ENCOUNTER 2024-08-29 09:40 | Outpatient (REF) | payer OTHER, SELFPAY ==
--- OUTSIDE RECORDS SUMMARY | 2024-08-29 10:24 | XMS_ITS | Encounter Summary ---
Author Organization [employer] Address [address] [facility] 7t [place] [address] Care Team Providers Care Silk Hanger Name Role Phone Dominique Nielsen MD Primary Care Provider [phone] Reason for Visit * Reason Onset Date Comments callback requested 04/28/2024 Encounter Details Date Type Department Care Team ([facility] Contact Info) Description 04/28/2024 Telephone [facility] [address] [place] [address] Dominique Nielsen MD [address] [place] [address] callback requested Social History Tobacco Use Types [...] a callback as pt received something from [facility] like for a lab test but she's unknown of what she receive. Callback number [phone] documented in this encounter Plan of Treatment Not on file documented as of this encounter Visit Diagnoses Not on filedocumented in this encounter Additional Health Concerns Assessment Noted Time PHQ-9 Depression Total Score: 0 08/28/19 24 3:50 PM EDT documented as of this encounter Care Teams Silk Hanger Relationship Specialty Start Date End Date Dominique Nielsen MD [address] [place] [address] PCP - General Family Medicine 04/04/21 documented as of this encounter
--- OUTSIDE RECORDS SUMMARY | 2024-08-29 10:24 | XMS_ITS | Encounter Summary ---
Author Organization [employer] Address [address] [facility] 7t [place] [address] Care Team Providers Care Vice President Name Role Phone Dominique Nielsen MD Primary Care Provider [phone] Reason for Visit * Reason Comments Med Refill Encounter Details Date Type Department Care Team ([facility] st Contact Info) Description 10/18/2023 Refill [facility] CH[facility] MED & PEDS [address] [place], [place] [phone] Dominique Nielsen MD [address] [place] [address] Primary hypertension Social History Tobacco Use Types [...] documented as of this encounter Care Teams Vice President Relationship Specialty Start Date End Date Dominique Nielsen MD [address] [place] [address] PCP - General Family Medicine 04/04/21 documented as of this encounter
--- OUTSIDE RECORDS SUMMARY | 2024-08-29 10:24 | XMS_ITS | Clinical Summary ---
Author Organization [facility] Address [address] [place] [address] Phone Care Team Providers Care Dip Brazier Name Role Phone Dominique Nielsen MD Primary Care Provider [phone] Allergies Active Allergy Reactions Criticality Noted Date Comments Aspirin Itching,Rash Low 01/17/2018 Face & neck redness Face and neck redness Penicillins Rash High 05/27/2022 Pollen Extracts 08/08/2024 Medications No known medications Active Problems No known active problems Encounters Date Type Department Care Team Description 08/08/2024 10:40 AM EDT - 08/08/2024 1:13 PM EDT Emergency [facility] Emergency [address] [place] [address] Dry eyes, bilateral (Primary Dx) [...] POCT Glucose, blood (08/08/2024 12:37 PM EDT) [facility] Glucose POCT 134(H) 70 - 100 mg/dL 08/10/2024 7:17 AM EDT [facility] Blood Capillary blood specimen / Unknown 08/08/2024 12:37 PM EDT 08/10/2024 7:18 AM EDT us Generic Provider Poct LAB POINT OF CARE TEST DOCKED DEVICE UNSOLICITED RESULTS Final Result MEHRDAD STEVEN [place] ([facility]) [facility] [address] [place] [address], * DXA BONE DENSITY STUDY 1+ SITS AXIAL SKEL (03/19/2018 1:18 PM EST) Anatomical Region Laterality Modality Bone Densitometr y 01/17/2018 2:20 PM EDT Narrative 03/20/2018 1:51 PM EST [...] (World Health Organization Fracture Risk Assessment) [facility] Department of Internal Medicine recommends using National [...] (World Health Organization Fracture Risk Assessment) [facility] Department of Internal Medicine recommendsusing National Osteoporosis [...] to Health Maintenance Insurance MEDICAID - [place] [facility] [employer]P OPTIONS Member Subscriber Plan / Payer (Ef fective 2024-Present) Name:Raeann Tejada Relation to Subscriber:Self Name:Raeann Tejada Payer ID:[id number] Group ID:Not on file Type:Not on file Address: [facility] [address] [place] [address] Care Teams Dip Brazier Relationship Specialty Start Date End Date Dominique Nielsen MD [address] [place] [address] PCP - General 12/19/21
--- OUTSIDE RECORDS SUMMARY | 2024-08-29 10:24 | XMS_ITS | Encounter Summary ---
Author Organization [employer] Address [address] [facility] 7t [place] [address] Care Team Providers Care Shot Coat Tender Name Role Phone Dominique Nielsen MD Primary Care Provider [phone] Encounter Details Date Type Department Care Team ([facility] Contact Info) Description 08/27/2024 Telephone [facility] [employer] [address] [place] [address] Alexis Clinton MD [address] [place], [place] [phone] Social History Tobacco Use Types Packs/Day Years [...] encounter Miscellaneous Notes * Telephone Encounter - Briana Nielsen - 08/27/2024 10:07 AM EDT Please advise what notes to use for MRA HEAD order. Thank you documented in this encounter Plan of Treatment Not on file documented as of this encounter Visit Diagnoses Not on filedocumented in this encounter Additional Health Concerns Assessment Noted Time PHQ-9 Depression Total Score: 0 08/28/19 24 3:50 PM EDT documented as of this encounter Care Teams Shot Coat Tender Relationship Specialty Start Date End Date Dominique Nielsen MD [address] [place] [address] PCP - General Family Medicine 04/04/21 documented as of this encounter
--- OUTSIDE RECORDS SUMMARY | 2024-08-29 10:24 | XMS_ITS | Clinical Summary ---
Author Organization [employer] Address [address] [place] [address] 7t [place] [address] Care Team Providers Care Purchase Price Analyst Name Role Phone Dominique Nielsen MD Primary Care Provider [phone] Allergies Active Allergy Reactions Criticality Noted Date [...] complication, without long-term current use of insulin ([facility]) 1 each by Other route 2 times daily. 100 each 11 024 Active Lancets miscIndications :Type 2 diabetes mellitus without complication, without long-term current use of insulin ([facility]) 1 Units 2 times daily. 100 each [...] day. 30 tablet 2 025 2025 Active losartan (Cozaar) 100 MG tabletIndicatio ns:Primary [...] 14 days. 5 mL 025 2024 Discontinued prednisoLONE acetate (Pred-Forte) 1 % ophthalmic suspensionIndic ations:Dry eyes, bilateral Administer 1 drop into both eyes 4 times daily for 14 days. 5 mL 025 2024 Active Problems Problem Noted Date Diagnosed Date [...] rotator cuff involvement, will get records from [facility] to review and will send for MRI [...] Patient with persistent rash. Will refer to digital campaign specialist for further evaluation. Osteopenia 03/20/2018 Varicose [...] BP. Future Appointments Date Time Provider Department [place] 09/24/2023 10:00 AM [facility]KE NURSE [facility] - If SBP < 130/DBP <80 mmHg [...] Encounters Date Type Department Care Team Description 08/28/2024 Telephone [facility] MED [facility]EDS [address] [place], [place] [phone] Dominique Nielsen MD Labs (I informed the patient that Tspot labs were ordered, and she may have them done at either the [facility] or the [facility]. The results need to be sent to [facility]. She verbalized understanding.) 08/28/2024 Telephone [facility] [address] [place], [place] [phone] Dominique Nielsen MD 08/27/2024 Telephone [facility] [email or web address] [address] [place] [address] [phone] Alexis Clinton MD 08/22/2024 Orders Only [facility] [address] [place], [place] [phone] Alexis Clinton MD Cognitive impairment (Primary Dx) 08/20/2024 2:45 PM EDT Office Visit [facility] OPTOMETRY [address] [place], [place] [phone] Carlita Vera, OD Dry eyes, bilateral (Primary Dx); Meibomian gland dysfunction (MGD) of upper and lower lids of both eyes 08/20/2024 Travel 08/18/2024 Refill [facility] [address] [place], [place] [phone] Dominique Nielsen MD Primary hypertension 08/13/2024 Travel 08/12/2024 3:30 PM EDT Office Visit [facility] OPTOMETRY [address] [place], [place] [phone] Carlita Vera, OD Dry eyes, bilateral (Primary Dx); Meibomian gland dysfunction (MGD) of upper and lower lids of both eyes 08/11/2024 Travel 08/07/2024 1:45 PM EDT Office Visit [facility] [address] [place], [place] [phone] Alexis Clinton MD Type 2 diabetes mellitus with hyperglycemia, without long-term current use of insulin ([facility]) (Primary Dx); Hypertension, unspecified type; Blepharoconjunctivitis of both eyes, unspecified blepharoconjunctivitis type; Cognitive impairment 08/07/2024 Travel 07/14/2024 9:15 AM EST Office Visit [facility] OPTOMETRY [address] [place] [address] Carlita Vera, OD Dry eyes, bilateral (Primary Dx) 07/13/2024 Travel 07/13/2024 Refill [facility] MEDICINE [address] [place] [address] Dominique Nielsen MD Primary hypertension 07/11/2024 Refill [facility] MEDICINE [address] [place] [address] Dominique Nielsen MD Primary hypertension 07/07/2024 Telephone [facility] MED & PEDS [address] [place], [place] [phone] Dominique Nielsen MD 07/05/2024 Orders Only [facility] MED & PEDS [address] [place], [place] [phone] Emelina Pino MD 06/16/2024 10:30 AM EST Office Visit [facility] OPTOMETRY [address] [place] [address] Carlita Vera, OD Dry eyes, bilateral (Primary [...] Procedure Name Priority Date/Time Associated Diagnosis Comments TSH W/REFLEX TO FT4 Routine 08/22/2024 1 1:03 AM EDT Cognitive impairment VITAMIN B12/FOLATE, SERUM PANEL Routine 08/22/2024 11:03 AM EDT Cognitive impairment BASIC METABOLIC PANEL Routine 08/22/2024 11:03 AM EDT Hypertension, unspecified type POCT GLUCOSE Routine 08/07/2024 2:14 PM EDT [...] Recently Relevant to Health Maintenance Results * Vitamin B12/Folate, Serum Panel (08/22/2024 11:03 AM EDT) Vitamin B12 372 200 - 900 pg/mL [facility] Comment:NORMAL 200-900 PG/ML INDETERMINATE 160-199 PG/ML DEFICIENT < 160 PG/ML Folate 11.9 > or = 4.0 ng/mL [facility] Comment:Reference Values:> o r = 4.0 ng/mL< 4.0 ng/mL suggests folate deficiency Methotrexate, aminopterin and folinic acid(leucovorin) are chemotherapeutic agents whose molecularstructures are similar to folate; therefore, the Architectfolate assay cannot be used for patients using these drugs. Blood Venous blood specimen / Unknown 08/22/2024 11:03 AM EDT 08/22/2024 2:14 PM EDT us Alexis Clinton MD LAB BLOOD ORDERABLES Final Result [facility] [address] [place] [phone] * TSH W/Reflex to FT4 (08/22/2024 11:03 AM EDT) TSH reflex Free T4 3.35 0.32 - 4.0 uIU/mL [facility] Blood Venous blood specimen / Unknown 08/22/2024 11:03 AM EDT 08/22/2024 2:14 PM EDT us Alexis Clinton MD LAB BLOOD ORDERABLES Final Result Performing Organization Address City/[facility]/ZIP Co de Phone Number [facility] [address] [place] [phone] * (ABNORMAL) Basic Metabolic Panel (08/22/2024 11:03 AM EDT) Sodium 143 135 - 145 mmol/L [facility] Potassium 4.0 3.3 - 5.1 mmol/L [facility] Chloride 110(H) 96 - 108 mmol/L [facility] Carbon Dioxide 23 22 - 29 mmol/L [facility] Anion Gap 14 12 - 20 [facility] Urea Nitrogen (BUN) 23(H) 9 - 16 mg/dL [facility] Creatinine, Serum 0.71 0.5 - 1.4 mg/dL [facility] Estimated Glomerular Filt Rate >60 [facility] Comment:Chronic Kidney Disea se: Estimated GFR < 60 mL/min/1.15b3Mpbehu Kidney Disease: Estimated GFR < 15 mL/min/1.73m2 Glucose 120(H) 60 - 115 mg/dL [facility] Calcium 9.4 8.4 - 10.2 mg/dL [facility] Blood Venous blood specimen / Unknown 08/22/2024 11:03 AM EDT 08/22/2024 2:14 PM EDT us Alexis Clinton MD LAB BLOOD ORDERABLES Final Result Performing Organization Address City/[facility]/ZIP Co de Phone Number [facility] [address] [place] [phone] [phone] * POCT Glucose (08/07/2024 2:14 PM EDT) Glucose Blood, POC 125 60 - 200 mg/dL QC Media Lot # [id number] Lot# Expiration Date [id number] Comment:random Blood Capillary blood specimen / Unknown 08/07/2024 2:14 PM EDT us Alexis Clinton MD POINT OF CARE TEST ENTER/ED IT ORDERABLES Final Result * Cologuard?? colon cancer screening (05/26/2024 8:30 AM EST) Cologuard Result Negative Negative 06/03/19 11:53 AM EST [facility] (CLIA #:[id number]) Comment: NEGATIVE TEST RESULT. A negative Cologuard [...] screened with both Cologuard and colonoscopy. (Ash T. et al, N Engl J Med 2014;370(14):1286- 1297) The normal value (reference range) for this assay is negative. COLOGUARD RE-SCREENING RECOMMENDATION: Periodic colorectal cancer screening is an important part of preventive healthcare for asymptomatic individuals at average risk for colorectal cancer. ??Following a negative Cologuard result, the [employer] Society and U.S. Multi-Society Task Force screening guidelines recommend a Cologuard re-screening interval of 3 years. References: [employer] Guideline for Colorectal Cancer Screening: https://www.cancer.org/cancer/hbykw-ccfxbs-tmdwcb/dxjmvpxqg-qocrfjhfh-wtkcelu/ac s-rec ommendations.html.; Hussain DAMON, Ayleen YARBROUGH, Jeremy CHAUDHARY, Colorectal Cancer Screening: Recommendations for Physicians and Patients from the U.S. Multi-Society Task Force on Colorectal Cancer Screening , Am J Gastroenterology 2017; 112:2863-1167. TEST DESCRIPTION: Composite algorithmic analysis of stool [...] (Ash Reilly al, N Engl J Med 2014;370(14):5951-0872.) Cologuard may produce a false negative or false positive result (no colorectal cancer or precancerous polyp present at colonoscopy follow up). A negative Cologuard test result does not guarantee the absence of CRC or advanced adenoma (pre-cancer). The current Cologuard screening interval is every 3 years. ([employer] Society and U.S. Multi-Society Task Force). Cologuard performance data in a 10,000 patient pivotal study using colonoscopy as the reference method can be accessed at the following location: www.Performance Indicator/results. Additional description of the Cologuard test process, warnings and precautions can be found at www.StoreAgerd.com. Stool specimen (specimen) 05/26/2024 8:30 AM EST 05/28/2024 11:06 AM EST us Alexis Clinton MD LAB MOLECULAR DIAGNOSTICS O RDERABLES Final Result [facility] (CLIA #:[id number]) [place] [address], * (ABNORMAL) POCT A1C (04/17/2024 1:48 PM EST) Hemoglobin A1C 6.3(A) 4.0 - 6.0 % QC Media Lot # Comment:[id number] Lot# Expiration Date Comment:12/12/2025 Blood 04/17/2024 1:48 PM EST us Alexis Clinton MD POINT OF CARE TEST ENTER/ED IT ORDERABLES Final Result * Lipid Panel, Standard (12/12/2023 8:50 AM EDT) Triglycerides 148 <150 mg/dL [facility] Comment:Desirable Triglyceri de: less than 150 mg/dLBorderline High Triglyceride 150-199 mg/dLHigh Triglyceride: 200-499 mg/dLVery High Triglyceride: greater than or equal to 5OO mg/dL Cholesterol 140 <200 mg/dL [facility] Comment:Desirable Cholestero l: less than 200 mg/dLBorderline High Cholesterol: 200-239 mg/dLHigh Cholesterol: greater than 239 mg/dL LDL Cholesterol Calculated 62 <100 mg/dL [facility] Comment:Desirable LDL: less than 100 mg/dLNear Optimal/Above Optimal LDL: 110- 129 mg/dLBorderline High LDL: 130-159 mg/dLHigh LDL: 160-189 mg/dLVery High LDL: greater than or equal to 190 mg/dL HDL Cholesterol 49 >40 mg/dL [facility] Comment:Desirable HDL: great er than 40 mg/dL Note: This HDL assay may give artificially low results in patients with liver disease. Blood Venous blood specimen / Unknown 12/12/2023 8:50 AM EDT 12/12/2023 2:24 PM EDT us Dominique Nielsen MD LAB BLOOD ORDERABLES Final Re sult [facility] [address] [place] [phone] * BI Mammogram Screening Tomosynthesis Bilateral (09/14/2023 2:20 PM EDT) Anatomical Region Laterality Modality Breast Bilateral Mammography 09/14/2023 2:20 PM EDT Narrative 10/15/2023 8:01 AM EDT ? [facility] ? [address] ?[place] [address] ? Mammography Report ? Signed ? Patient: Arceo Colon,Raeann ?MR#: [id number] ?? [id number] ? : 1950 ?Acct:[id number] ? Age/Sex: 72 / F ?ADM Date: 09/14/23 ? Loc: HO.MAMMO ? Attending Dr: Dominique Nielsen MD ? Ordering Physician: Dominique Nielsen MD ?Results: 1Nega ?? tive ? Date of Service: 09/14/23 ?Follow Up: 1 Year From Orig ?? inal Mammogram ? Procedure(s): MM tomosynthesis screening BI ?? Accession Number(s): [id number] ? cc: Dominique Nielsen MD ? EXAMINATION: [...] 0758 ? DD/ 1420 ? TD/TT: ? Plumber'S Helper: ? Procedure Note Rosa, Image - 10/15/2023 [facility] [address] [place], [place] [address] Mammography Report Signed Patient: Raeann Tejada#: [id number] : 1950cct:[id number] Age/Sex: 72 / FADM Date: 09/14/23 Loc: HO.MAMMO Attending Dr: Dominique Nielsen MD Ordering Physician: Dominique Nielsenesults: 1Nega tive Date of Service: 09/14/23Follow Up: 1 Year From Orig inal Mammogram Procedure(s): MM tomosynthesis screening BI Accession Number(s): [id number] cc: Dominique Nielsen MD EXAMINATION: MM SCREENING [...] by Hattie Harper MD in OV> 10/15/23 0758 DD/ 1420 TD/TT: Plumber'S Helper: Dominique Nielsen MD IMG BI PROCEDURES Final Resul t * Albumin, Random Urine W/O Creatinine (10/17/2022 8:35 AM EDT) Albumin, Urine 8.7 See Note: mg/dL [facility] [place] [facility] Comment: Reference Range: Reference Range Not established [facility] Comment: The ADA defines abnormalities in albumin [...] AM EDT 10/17/2022 8:35 AM EDT Narrative [facility] - 10/18/2022 5:07 PM EDT FASTING:YES FASTING: YES Dominique Nielsen MD LAB URINE ORDERABLES Final Re sult [facility] [address] [facility], [place] [address] [employer] [facility] [address] [place] [phone] * HEPATITIS C AB W/REFL TO HCV RNA, QN, PCR (08/03/2021 8:53 AM EDT) HEPATITIS C ANTIBODY NON-REACT [facility] NON-REACT [facility] INDEX 0.01 <1.00 [facility] Comment: ?? HCV antibody was non-reactive. There is no laboratory ?? evidence of HCV infection. ?? In most cases, no further action is required. However, if recent HCV exposure is suspected, a test for HCV RNA (test code 19166) is suggested. ?? For additional information please refer to http://[employer]/faq/LSY14e8 (This link is being provided for informational/ educational purposes only.) ?? 08/03/2021 8:53 AM EDT us Dominique Nielsen MD HISTORICAL/NON ORDERABLE LABS Final Result [facility] [address] from Last 3 Months or Most Recently Relevant to Health Maintenance [place] [address] [place] [address] - [facility] Care Teams Purchase Price Analyst Relationship Specialty Start Date End Date Dominique Nielsen MD [address] [place] [phone] PCP - General Family Medicine 04/04/21
--- OUTSIDE RECORDS SUMMARY | 2024-08-29 10:24 | XMS_ITS | Encounter Summary ---
Author Organization [employer] Address [address] [facility] 7t [place] [address] Care Team Providers Care Transit Vehicle Inspector Name Role Phone Dominique Nielsen MD Primary Care Provider [phone] Reason for Visit * Reason Onset Date Comments Nurse Triage 03/14/2023 Encounter Details Date Type Department Care Team ([facility] st Contact Info) Description 03/14/2023 Telephone [facility] MED & PEDS [address] [place], [place] [phone] Dominique Nielsen MD [address] [place] [address] Nurse Triage Social History Tobacco Use Types [...] 03/14/2023 5:03 PM EDT Triage call with [place] [employer] [place] [id number] Pt daughter Cora KendrickLUCAS barba, reports Pt was seen in [facility] for correa on the left arm from [...] now, pt was seen on 03/12 at [facility] for correa. Daughter states medication given is not working. The caller accepted this outcome Please contact daughter at [phone] documented in this encounter Plan of Treatment Not on file documented as of this encounter Visit Diagnoses Not on filedocumented in this encounter Additional Health Concerns Assessment Noted Time PHQ-9 Depression Total Score: 2 02/06/20 23 10:05 AM EDT documented as of this encounter Care Teams Transit Vehicle Inspector Relationship Specialty Start Date End Date Dominique Nielsen MD [address] [place] [address] PCP - General Family Medicine 04/04/21 documented as of this encounter
--- OUTSIDE RECORDS SUMMARY | 2024-08-29 10:24 | XMS_ITS | Encounter Summary ---
Author Organization [employer] Address [address] [facility] 7t [place] [address] Care Team Providers Care Senior Officer Name Role Phone Dominique Nielsen MD Primary Care Provider [phone] Reason for Visit * Reason Onset Date Comments Med Refill 10/18/2023 Encounter Details Date Type Department Care Team ([facility] st Contact Info) Description 10/18/2023 Refill [facility] MED & PEDS [address] [place] [address] Dominique Nielsen MD [address] [place] [address] Primary hypertension Social History Tobacco Use Types [...] documented as of this encounter Care Teams Senior Officer Relationship Specialty Start Date End Date Dominique Nielsen MD [address] [place] [address] PCP - General Family Medicine 04/04/21 documented as of this encounter
--- OUTSIDE RECORDS SUMMARY | 2024-08-29 10:24 | XMS_ITS | Encounter Summary ---
Author Organization [employer] Address [address] [place] [address] 7t [place] [address] Care Team Providers Care Division Operations Manager Name Role Phone Dominique Nielsen MD Primary Care Provider [phone] Reason for Visit * Reason Comments Med Refill Encounter Details Date Type Department Care Team ([facility] st Contact Info) Description 11/04/2022 Refill [facility] CHC MED & PEDS [address] [place], [place] [phone] Dominique Nielsen MD [address] [place] [address] Rash in adult Social History Tobacco Use [...] documented as of this encounter Care Teams Division Operations Manager Relationship Specialty Start Date End Date Dominique Nielsen MD [address] [place] [address] PCP - General Family Medicine 04/04/21 documented as of this encounter
--- OUTSIDE RECORDS SUMMARY | 2024-08-29 10:24 | XMS_ITS | Encounter Summary ---
Author Organization [employer] Address [address] [facility] 7t [place] [address] Care Team Providers Care Psychiatry Instructor Name Role Phone Dominique Nielsen MD Primary Care Provider [phone] Encounter Details Date Type Department Care Team ([facility] st Contact Info) Description 08/28/[address] [facility] CH[facility] MED & PEDS [address] [place], [place] [phone] Dominique Nielsen MD [address] [place], [place] [phone] Social History Tobacco Use Types Packs/Day Years [...] encounter Miscellaneous Notes * Telephone Encounter - Sofía Martinez RN - 08/28/2024 1:36 PM EDT Rosina from [facility] called and needed to schedule T-spot. T-spot ordered. documented in this encounter Plan of Treatment Scheduled Orders Name Type Priority Associated Diagnoses Orde r Schedule T-SPOT??.TB Lab Routine Screening examination for pulmonary tuberculosis Expected: 08/28/2024 (Approximate), Expires: 08/28/2025 documented as of this encounter Visit Diagnoses Diagnosis Screening examination for pulmonary tuberculosis documented in this encounter Additional Health Concerns Assessment Noted Time PHQ-9 Depression Total Score: 0 08/28/19 24 3:50 PM EDT documented as of this encounter Care Teams Psychiatry Instructor Relationship Specialty Start Date End Date Dominique Nielsen MD [address] [place] [address] PCP - General Family Medicine 04/04/21 documented as of this encounter
--- OUTSIDE RECORDS SUMMARY | 2024-08-29 10:24 | XMS_ITS | Encounter Summary ---
Author Organization [employer] Address [address] [place] [address] 7 [place] [address] Care Team Providers Care Sprayer Automatic Spray Machine Name Role Phone Dominique Nielsen MD Primary Care Provider [phone] Reason for Referral * Imaging (Routine) - Pending Review Specialty Diagnoses / Procedures Referred By Contac t Referred To Contact Radiology Diagnoses Cognitive impairment Procedures MRA Head w/o Contrast Alexis Clinton MD [address] [place] [address] Phone: tel: fax: [address] Phone: tel: fax: Referral ID Status Reason Start Date Expiration Date V isits Requested Visits Authorized [id number] Pending Review 08/22/2024 08/22/2025 1 1 Encounter Details Date Type Department Care Team (Late st Contact Info) Description 08/22/2024 Orders Only [facility] CHC MED & PEDS [address] [place] [address] Alexis Clinton MD [address] [place] [address] Cognitive impairment (Primary Dx) Social History Tobacco [...] Type Priority Associated Diagnoses Orde r Schedule MRA Head w/o Contrast Imaging Routine Cognitive impairment Expected: 08/22/2024, Expires: 08/22/2025 documented as of this encounter Procedures Procedure Name Priority Date/Time Associated Diagnosis Comments VITAMIN B12/FOLATE, SERUM PANEL Routine 08/22/2024 11:03 AM EDT Cognitive impairment TSH W/REFLEX TO FT4 Routine 08/22/2024 1 1:03 AM EDT Cognitive impairment documented in this encounter Results * TSH W/Reflex to FT4 (08/22/2024 11:03 AM EDT) TSH reflex Free T4 3.35 0.32 - 4.0 uIU/mL [facility] Blood Venous blood specimen / Unknown 08/22/2024 11:03 AM EDT 08/22/2024 2:14 PM EDT us Alexis Clinton MD LAB BLOOD ORDERABLES Final Result Performing Organization Address [facility] Co de Phone Number [facility] [address] [place] [phone] * Vitamin B12/Folate, Serum Panel (08/22/2024 11:03 AM EDT) Vitamin B12 372 200 - 900 pg/mL [facility] Comment:NORMAL 200-900 PG/M L INDETERMINATE 160-199 PG/ML DEFICIENT < 160 PG/ML Folate 11.9 > or = 4.0 ng/mL [facility] Comment:Reference Values:> o r = [...] BLOOD ORDERABLES Final Result Performing Organization Address [facility] Co de Phone Number [facility] [address] [place] [phone] documented in this encounter Visit Diagnoses Diagnosis Cognitive impairment- Primary Unspecified persistent mental disorders due to conditions classified elsewhere documented in this encounter Additional Health Concerns Assessment Noted Time PHQ-9 Depression Total Score: 0 08/28/19 24 3:50 PM EDT documented as of this encounter Care Teams Sprayer Automatic Spray Machine Relationship Specialty Start Date End Date Dominique Nielsen MD [address] [place] [address] PCP - General Family Medicine 04/04/21 documented as of this encounter
--- OUTSIDE RECORDS SUMMARY | 2024-08-29 10:24 | XMS_ITS | Clinical Summary ---
Author Organization [facility] Address [address] [place] [address] Care Team Providers Care Forest Supervisor Name Role Phone Allie Gandara DO Primary [...] age to complete this topic Care Teams Forest Supervisor Relationship Specialty Start Date End Date Allie Gandara DO PCP - General Carpet Renovator 07/23/20
--- OUTSIDE RECORDS SUMMARY | 2024-08-29 10:25 | XMS_ITS | Encounter Summary ---
Author Organization [employer] Address [address] [facility] 7t [place] [address] Care Team Providers Care Supervisor Corduroy Cutting Name Role Phone Dominique Nielsen MD Primary Care Provider [phone] Reason for Visit * Reason Onset Date Comments Labs 08/28/2024 I informed the p atient that Tspot labs were ordered, and she may have them done at either the [facility] or the [facility]. The results need to be sent to [facility]. She verbalized understanding. Encounter Details Date Type Department Care Team (Late st Contact Info) Description 08/28/2024 Telephone [facility] MED & PEDS [address] [place], [place] [phone] Dominique Nielsen MD [address] [place], [place] [phone] Labs (I informed the patient that Tspot labs were ordered, and she may have them done at either the [facility] or the [facility]. The results need to be sent to [facility]. She verbalized understanding.) Social History Tobacco Use Types Packs/Day Years [...] encounter Miscellaneous Notes * Telephone Encounter - Lilliana Hendrickson MA - 08/28/2024 1:57 PM EDT I informed the patient that Tspot labs were ordered, and she may have them done at either the [facility] or the [facility]. The results need to be sent to [facility]. She verbalized understanding. documented in this encounter Plan of Treatment Not on file documented as of this encounter Visit Diagnoses Not on filedocumented in this encounter Additional Health Concerns Assessment Noted Time PHQ-9 Depression Total Score: 0 08/28/19 24 3:50 PM EDT documented as of this encounter Care Teams Supervisor Corduroy Cutting Relationship Specialty Start Date End Date Dominique Nielsen MD [address] [place] [address] PCP - General Family Medicine 04/04/21 documented as of this encounter
[2024-09-01 16:04] LABS: TS Negative Control Passed; TS Panel A 0; TS Panel B 0; TS Positive Control Passed; TSpotTB Negative (Negative)
== END 2024-08-29 09:41 | disposition home or self-care (01) ==
LOC: HO.CHCLDS 09:40
PROVIDERS: Visit Provider Family Medicine
DX: Z11.1 Encounter for screening for respiratory tuberculosis (principal)
CPT/HCPCS: 36415; 86481

== ENCOUNTER 2025-05-11 16:19 | Outpatient (REF) | payer OTHER, SELFPAY ==
--- OUTSIDE RECORDS SUMMARY | 2025-05-11 15:45 | XMS_ITS | Encounter Summary ---
Author Organization [employer] Address [address] [facility] 7t [place] [address] Care Team Providers Care Machinery Repair Maintenance Supervisor Name Role Phone Dominique Nielsen MD Primary Care Provider [phone] Reason for Visit * Reason Comments Follow-up Encounter Details Date Type Department Care Team ([facility] st Contact Info) Description 05/11/2025 3:45 PM EST Office Visit [facility] MED & PEDS [address] [place], [place] [phone] Dominique Nielsen MD [address] [place] [address] Upper respiratory tract infection, unspecified type (Primary Dx); Type 2 diabetes mellitus with hyperglycemia, unspecified whether watermelon harvesting supervisor insulin use (HCC); Dysuria; Primary hypertension; Rash in adult; Hypertension, unspecified type Social History Tobacco Use Types Packs/Day Years [...] AM EDT documented as of this encounter Last Filed Vital Signs Vital Sign Reading Time Taken Comments Blood Pressure 130/67 05/11/2025 3:08 PM EST Pulse 84 05/11/2025 3:08 PM EST Temperature 38.2 C (100.8 F) 05/11/2025 3:08 PM EST Respiratory Rate 20 05/11/2025 3:08 PM EST Oxygen Saturation 98% 05/11/2025 3:08 PM EST Inhaled Oxygen Concentration - - Weight 64.8 kg (142 lb 12.8 oz) 05/11/2025 3:08 PM EST Height 160 cm (5' 3 ) 05/11/2025 3:08 PM EST Body Mass Index 25.3 05/11/2025 3:08 PM EST documented in this encounter Progress Notes * Dominique Nielsen MD - 05/11/2025 3:45 PM EST Subjective Patient ID: Raeann Rivera is a 74 y.o. female who presents for Follow-up. Raeann Rivera presents with fever, congestion, and fatigue that began yesterday. She reportsa measured temperature of 100.9??F and describes feeling congested and tired today. She denies having anyone sick at home with similar symptoms, though mentions someone at a center in [place] had what she believes was the flu. The patient also reports a one-week history of back pain and symptoms suggestive of a urinary tractinfection, describing that she feels like she has a urinary infection. She denies pain with urination but endorses the feeling of having a urinary infection. On physical examination discussion, she reports nasal congestion that feels stuck inside the nostrils and describes it as feeling like a pressed face. She denies throat pain when swallowing, though the clinician notes some throat redness. The patient denies having influenza currently and denies having had a heart attack. She reports stable hair loss and indicates her blood pressure and blood sugar have been well controlled. She mentions needing refills for her thyroid medication and other routine medications including those for blood pressure management. Review of Systems General: Positive for fever, fatigue, and congestion. HEENT: Positive for sore throat with mild erythema, nasal congestion described as stuck inside thenostrils. Genitourinary: Positive for symptoms suggestive of urinary tract infection. Musculoskeletal: Positive for back pain for one week. Review of Systems Objective BP 130/67 Pulse 84 Temp (!) 100.8 ??F (38.2 ??C) (Oral) Resp 20 Ht 5' 3 (1.6 m) Wt 142 lb 12.8 oz (64.8 kg) SpO2 98% BMI 25.30 kg/m?? Physical Exam Constitutional: General: She is not in acute distress. Appearance: She is not ill-appearing. HENT: Head: Normocephalic and atraumatic. Right Ear: There is no impacted cerumen. Left Ear: There is no impacted cerumen. Nose: Congestion and rhinorrhea present. Mouth/Throat: Pharynx: Posterior oropharyngeal erythema present. Eyes: Conjunctiva/sclera: Conjunctivae normal. Cardiovascular: Rate and Rhythm: Regular rhythm. Pulmonary: Breath sounds: No wheezing. Musculoskeletal: Cervical back: Normal range of motion. Skin: Capillary Refill: Capillary refill takes less than 2 seconds. Neurological: General: No focal deficit present. Mental Status: She is alert. Psychiatric: Mood and Affect: Mood normal. Assessment/Plan Problem List Items Addressed This Visit Type 2 diabetes mellitus (HCC) Relevant Medications losartan (Cozaar) 100 MG tablet Other Relevant Orders POCT Glucose (Completed) POCT Hgb A1c (Completed) CBC auto differential Comprehensive Metabolic Panel Lipid Panel, Standard Albumin, Random Urine W/Creatinine TSH W/Reflex to FT4 HTN (hypertension) Relevant Medications amLODIPine (Norvasc) 10 MG tablet carvedilol (Coreg) 12.5 MG tablet chlorthalidone (Hygroton) 25 MG tablet furosemide (Lasix) 20 MG tablet spironolactone (Aldactone) 25 MG tablet losartan (Cozaar) 100 MG tablet Dysuria Relevant Orders POCT Urinalysis (Completed) Urinalysis, Complete, with Reflex to Culture Other Visit Diagnoses Upper respiratory tract infection, unspecified type - Primary Relevant Medications pseudoephedrine ER (Sudafed-12 Hour) 120 MG 12 hr tablet cetirizine (ZyrTEC) 10 MG tablet Other Relevant Orders POCT Rapid Covid-19 BinaxNOW (Completed) SARS-CoV-2 RNA, Influenza A/B, and RSV RNA, Ql NAAT Rash in adult Would benefit from a humidifier Medication as directed RTC in 2 weeks if no improvement. Relevant Medications cetirizine (ZyrTEC) 10 MG tablet Raeann Rivera presents with fever (100.9??F), congestion, fatigue, and suspected urinary tract infection symptoms for one week. Fever with upper respiratory symptoms Assessment: Patient presents with fever of 100.9??F, congestion, and fatigue starting yesterday. There is concern for influenza given the constellation of symptoms and known exposure to someone with flu-like illness at a community center. Physical examination reveals mild throat erythema and nasal congestion described as feeling stuck inside the nostrils. Given the timing and symptom presentation, influenza testing is warranted to guide appropriate antiviral therapy. Plan: - Perform influenza rapid test - Send laboratory PCR for influenza confirmation given potential for false negative rapid test - If influenza test positive, prescribe Tamiflu to reduce symptom duration - Provide decongestant for symptomatic relief of nasal congestion Suspected urinary tract infection Assessment: Patient reports symptoms consistent with urinary tract infection for one week. Clinicalexperience supports treating women who report classic UTI symptoms empirically, as studies show this approach is more effective than waiting for confirmation. Plan: - Prescribe 5-day course of antibiotics for urinary tract infection - Obtain urine sample for testing Medication refills Assessment: Patient requires refills for multiple chronic medications including thyroid medication and various antihypertensive agents. Blood pressure and glucose levels are well controlled on her current regimen. Plan: - Refill spironolactone, Protonix, Lasix, carvedilol, amlodipine for blood pressure management - Refill losartan with additional refills - Refill levothyroxine for thyroid management - Defer routine laboratory work until at least 2 weeks after acute illness resolves to avoid falsely abnormal results documented in this encounter Plan of Treatment Upcoming Encounters Date Type Department Care Team (Late st Contact Info) Description 06/22/2025 9:30 AM EST Office Visit [facility] MED & PEDS [address] [place] [address] Dominique Nielsen MD [address] [place], [place] [phone] Scheduled Orders Name Type Priority Associated Diagnoses Orde r Schedule SARS-CoV-2 RNA, Influenza A/B, and RSV RNA, Ql NAAT Microbiology Routine Upper respiratory tract infection, unspecified type Ordered: 05/11/2025 Urinalysis, Complete, with Reflex to Culture Lab Routine Dysuria Expected: 05/11/2025 (Approximate), Expires: 05/11/2026 CBC auto differential Lab Routine Type 2 diabetes mellitus with hyperglycemia, unspecified whether alf insulin use (HCC) Expected: 05/11/2025 (Approximate), Expires: 05/11/2026 Comprehensive Metabolic Panel Lab Routine Type 2 diabetes mellitus with hyperglycemia, unspecified whether watermelon harvesting supervisor insulin use (HCC) Expected: 05/11/2025 (Approximate), Expires: 05/11/2026 Lipid Panel, Standard Lab Routine Type 2 diabetes mellitus with hyperglycemia, unspecified whether alf insulin use (HCC) Expected: 05/11/2025 (Approximate), Expires: 05/11/2026 Albumin, Random Urine W/Creatinine Lab Routine Type 2 diabetes mellitus with hyperglycemia, unspecified whether watermelon harvesting supervisor insulin use (HCC) Expected: 05/11/2025 (Approximate), Expires: 05/11/2026 TSH W/Reflex to FT4 Lab Routine Type 2 diabetes mellitus with hyperglycemia, unspecified whether alf insulin use (HCC) Expected: 05/11/2025 (Approximate), Expires: 05/11/2026 documented as of this encounter Goals Goal Patient Goal Type Associated Problems Recent Progress Patient-Stated? Author Help patients manage their type 2 diabetes Care Plan Help patients manage their type 2 diabetes No Karla Herrmann Weekly blood pressure task Care Plan Weekly blood pressure task No Karla Herrmann Help patients manage their type 2 diabetes Care Plan Help patients manage their type 2 diabetes No Key Herrmannilet Patient has chronic kidney disease Care Plan Patient has chronic kidney disease No Key Herrmannilet Weekly blood pressure task Care Plan Weekly blood pressure task No Key Herrmannilet Patient has chronic kidney disease Care Plan Patient has chronic kidney disease No Key Herrmannilet Weekly blood pressure task Care Plan Weekly blood pressure task No Satya Gonzalez MA Weekly blood pressure task Care Plan Weekly blood pressure task No Satya Gonzalez MA Patient has chronic kidney disease Care Plan Patient has chronic kidney disease No Satya Gonzalez MA Patient has chronic kidney disease Care Plan Patient has chronic kidney disease No Satya Gonzalez MA Weekly blood pressure task Care Plan Weekly blood pressure task No Satya Gonzalez MA Weekly blood pressure task Care Plan Weekly blood pressure task No Satya Gonzalez MA Patient has chronic kidney disease Care Plan Patient has chronic kidney disease No Satya Gonzalez MA Patient has chronic kidney disease Care Plan Patient has chronic kidney disease No Satya Gonzalez MA documented as of this encounter Procedures Procedure Name Priority Date/Time Associated Diagnosis Comments POCT RAPID COVID ANTIGEN Routine 05/11/2025 4:11 PM EST Upper respiratory tract infection, unspecified type POCT GLYCATED HEMOGLOBIN, TOTAL Routine 05/11/2025 3:48 PM EST Type 2 diabetes mellitus with hyperglycemia, unspecified whether watermelon harvesting supervisor insulin use (HCC) POCT GLUCOSE (CPT-81611) Routine 05/11/2025 3:47 PM EST Type 2 diabetes mellitus with hyperglycemia, unspecified whether alf insulin use (HCC) POCT URINALYSIS DIPSTICK Routine 05/11/2025 3:44 PM EST Dysuria documented in this encounter Results * POCT Rapid Covid-19 BinaxNOW (05/11/2025 4:11 PM EST) Pathologist [facility] Rapid COVID Ag Negative QC Media Lot # [id number] Lot# Expiration Date 822, Swab 05/11/2025 4:11 PM EST Dominique Nielsen MD POINT OF CARE TEST ENTER/EDIT ORDERABLES Final Result * (ABNORMAL) POCT Hgb A1c (05/11/2025 3:48 PM EST) Pathologist [facility] Hemoglobin A1C 6.9(A) 4.0 - 5.7 % QC Media Lot # [id number] Lot# Expiration Date 52, Blood 05/11/2025 3:48 PM EST Dominique Nielsen MD POINT OF CARE TEST ENTER/EDIT ORDERABLES Final Result * POCT Glucose (05/11/2025 3:47 PM EST) [facility] Glucose Blood, POC 135 60 - 200 mg/dL QC Media Lot # [id number] Lot# Expiration Date 47, Blood Capillary blood specimen / Unknown 05/11/2025 3:47 PM EST Dominique Nielsen MD POINT OF CARE TEST ENTER/EDIT ORDERABLES Final Result * (ABNORMAL) POCT Urinalysis (05/11/2025 3:44 PM EST) Pathologist [facility] Color, UA Yellow Clarity, UA Clear Glucose, UA Negative Bilirubin, UA Trace Comment:small Ketones, UA Positive Comment:trace Spec Grav, UA 1.010 Blood, UA Positive(A) Negative, None Detected Comment:small pH, UA 6.5 Protein, UA 2+ (35) Comment:30mg/dl Urobilinogen, UA 1.0 Leukocytes, UA Negative Negative, Rare, Trace, 1+ (17), 2+ (35), 3+ (70), Trace (15) Nitrite, UA Negative Negative, None Detected Appearance, UA clear QC Media Lot # [id number] Lot# Expiration Date [id number] Urine (Urine, Random) 05/11/2025 3:44 PM EST Dominique Nielsen MD POINT OF CARE TEST ENTER/EDIT ORDERABLES Final Result documented in this encounter Visit Diagnoses Diagnosis Upper respiratory tract infection, unspecified type- Primary Type 2 diabetes mellitus with hyperglycemia, unspecified whether watermelon harvesting supervisor insulin use (HCC) Dysuria Primary hypertension Unspecified essential hypertension Rash in adult Hypertension, unspecified type documented in this encounter Additional Health Concerns Active Problems Noted Date Diagnosed Date Help patients manage their type 2 diabetes 04/30 Weekly blood pressure task 04/30/2025 Help patients manage their type 2 diabetes 04/30 Patient has chronic kidney disease 04/30/2025 Weekly blood pressure task 04/30/2025 Patient has chronic kidney disease 04/30/2025 Weekly blood pressure task 05/05/2025 Weekly blood pressure task 05/05/2025 Patient has chronic kidney disease 05/05/2025 Patient has chronic kidney disease 05/05/2025 Weekly blood pressure task 05/11/2025 Weekly blood pressure task 05/11/2025 Patient has chronic kidney disease 05/11/2025 Patient has chronic kidney disease 05/11/2025 Assessment Noted Time PHQ-9 Depression Total Score: 0 08/28/19 24 3:50 PM EDT documented as of this encounter Care Teams Machinery Repair Maintenance Supervisor Relationship Specialty Start Date End Date Dominique Nielsen MD [address] [place] [address] PCP - General Family Medicine 04/04/21 documented as of this encounter
--- OUTSIDE RECORDS SUMMARY | 2025-05-11 17:57 | XMS_ITS | Encounter Summary ---
Author Organization [employer] Address [address] [facility] 7 [place] [address] Care Team Providers Care Sheep Boner Name Role Phone Dominique Nielsen MD Primary Care Provider [phone] Reason for Referral * Imaging (Routine) - Denied Specialty Diagnoses / Procedures Referred By Cori fraire Referred To Contact Radiology Diagnoses Cognitive impairment Procedures MRA Head w/o Contrast Alexis Clinton MD [address] [place] [address] Phone: tel: fax: [address] Phone: tel: fax: Referral ID Status Reason Start Date Expiration Date Visits Re quested Visits Authorized [id number] Denied 08/22/2024 08/22/2025 1 0 Encounter Details Date Type Department Care Team (Late st Contact Info) Description 08/22/2024 Orders Only [facility] MED & PEDS [address] [place], [place] [phone] Alexis Clinton MD [address] [place], [place] [phone] Cognitive impairment (Primary Dx) Social History Tobacco [...] as of this encounter Plan of Treatment Upcoming Encounters Date Type Department Care Team (Late st Contact Info) Description 06/22/2025 9:30 AM EST Office Visit [facility] & PEDS [address] [place] [address] Dominique Nielsen MD [address] [place] [address] Scheduled Orders Name Type Priority Associated Diagnoses [...] Free T4 3.35 0.32 - 4.0 uIU/mL [facility] Blood Venous blood specimen / Unknown 08/22/2024 11:03 AM EDT 08/22/2024 2:14 PM EDT us Alexis Clinton MD LAB BLOOD ORDERABLES Final Result [facility] [address] [place] [address] [phone] * Vitamin B12/Folate, Serum Panel (08/22/2024 11:03 AM EDT) Vitamin B12 372 200 - 900 pg/mL [facility] Comment:NORMAL 200-900 PG/ML INDETERMINATE 160-199 PG/ML DEFICIENT < 160 PG/ML Folate 11.9 > or = 4.0 ng/mL [facility] Comment:Reference Values:> o r = 4.0 ng/mL< 4.0 ng/mL suggests folate deficiency Methotrexate, aminopterin and folinic acid(leucovorin) are chemotherapeutic agents whose molecularstructures are similar to folate; therefore, the Architectfolate assay cannot be used for patients using these drugs. Blood Venous blood specimen / Unknown 08/22/2024 11:03 AM EDT 08/22/2024 2:14 PM EDT us Alexis Clinton MD LAB BLOOD ORDERABLES Final Result [facility] [address] [place] [phone] [phone] documented in this encounter Visit Diagnoses Diagnosis Cognitive impairment- Primary Unspecified persistent mental disorders due to conditions classified elsewhere documented in this encounter Additional Health Concerns Assessment Noted Time PHQ-9 Depression Total Score: 0 08/28/19 24 3:50 PM EDT documented as of this encounter Care Teams Sheep Boner Relationship Specialty Start Date End Date Dominique Nielsen MD [address] [place] [address] PCP - General Family Medicine 04/04/21 documented as of this encounter
--- OUTSIDE RECORDS SUMMARY | 2025-05-11 17:58 | XMS_ITS | Encounter Summary ---
Author Organization [employer] Address [address] [facility] 7t [place] [address] Care Team Providers Care Sheet Cutting Operator Name Role Phone Dominique Nielsen MD Primary Care Provider [phone] Reason for Visit * Reason Comments Med Refill Encounter Details Date Type Department Care Team ([facility] st Contact Info) Description 02/09/2025 Refill [facility] & PEDS [address] [place], [place] [phone] Alexis Clinton MD [address] [place] [address] Primary hypertension Social History Tobacco Use Types [...] Description 06/22/2025 9:30 AM EST Office Visit [facility] PEDS [address] [place] [address] Dominique Nielsen MD [address] [place] [address] documented as of this encounter Visit Diagnoses Diagnosis Primary hypertension Unspecified essential hypertension documented in this encounter Additional Health Concerns Assessment Noted Time PHQ-9 Depression Total Score: 0 08/28/19 24 3:50 PM EDT documented as of this encounter Care Teams Sheet Cutting Operator Relationship Specialty Start Date End Date Dominique Nielsen MD [address] [place] [address] PCP - General Family Medicine 04/04/21 documented as of this encounter
--- OUTSIDE RECORDS SUMMARY | 2025-05-11 17:58 | XMS_ITS | Encounter Summary ---
Author Organization [employer] Address [address] [facility] 7t [place] [address] Care Team Providers Care Scarf And Anneal Operator Name Role Phone Dominique Nielsen MD Primary Care Provider [phone] Reason for Visit * Reason Onset Date Comments Med Refill 10/18/2023 Encounter Details Date Type Department Care Team ([facility] st Contact Info) Description 10/18/2023 Refill [facility] PEDS [address] [place] [address] Dominique Nielsen MD [address] [place] [address] Primary hypertension Social History Tobacco Use Types [...] Description 06/22/2025 9:30 AM EST Office Visit [facility] MED & PEDS [address] [place] [address] Dominique Nielsen MD [address] [place] [address] documented as of this encounter Visit Diagnoses Diagnosis Primary hypertension Unspecified essential hypertension documented in this encounter Additional Health Concerns Assessment Noted Time PHQ-9 Depression Total Score: 0 08/28/19 24 3:50 PM EDT documented as of this encounter Care Teams Scarf And Anneal Operator Relationship Specialty Start Date End Date Dominique Nielsen MD [address] [place] [address] PCP - General Family Medicine 04/04/21 documented as of this encounter
--- OUTSIDE RECORDS SUMMARY | 2025-05-11 17:58 | XMS_ITS | Encounter Summary ---
Author Organization [employer] Address [address] [facility] 7t [place] [address] Care Team Providers Care Logistics Management Specialist Name Role Phone Dominique Nielsen MD Primary Care Provider [phone] Reason for Visit * Reason Comments Med Refill Encounter Details Date Type Department Care Team ([facility] st Contact Info) Description 10/18/2023 Refill [facility] MED & PEDS [address] [place], [place] [phone] Dominique Nielsen MD [address] [place] [address] Primary hypertension Social History Tobacco Use Types [facility] [address] [place] [address] Dominique Nielsen MD [address] [place] [address] documented as of this encounter Visit Diagnoses Diagnosis Primary hypertension Unspecified essential hypertension documented in this encounter Additional Health Concerns Assessment Noted Time PHQ-9 Depression Total Score: 0 08/28/19 24 3:50 PM EDT documented as of this encounter Care Teams Logistics Management Specialist Relationship Specialty Start Date End Date Dominique Nielsen MD [address] [place] [address] PCP - General Family Medicine 04/04/21 documented as of this encounter
--- OUTSIDE RECORDS SUMMARY | 2025-05-11 17:58 | XMS_ITS | Clinical Summary ---
Author Organization [facility] Prior to 10/11/24 Address [address] [place] [address] Care Team Providers Care Cat Skinner Name Role Phone Allie Gandara DO Primary [...] 86 09/01/2020 1:41 PM EDT Temperature 36.8 C (98.3 F) 09/01/2020 1:41 PM EDT Respiratory Rate - - Oxygen Saturation 100% [...] or PCV20) 04/24/2020 04/24/2019 Influenza Vaccine (#1) 2025 RSV Adult > 60+ Yrs or Pregn ant (1 - 1-dose 75+ series) 11/04/2027 Hepatitis B Vaccines Aged Out No long er eligible based on patient's age to complete this topic RSV Ped < 20 months Aged Out No longe r eligible based on patient's age to complete this topic Care Teams Cat Skinner Relationship Specialty Start Date End Date Allie Gandara DO PCP - General Audit Clerk 07/23/20
--- OUTSIDE RECORDS SUMMARY | 2025-05-11 17:58 | XMS_ITS | Encounter Summary ---
Author Organization [employer] Address [address] [facility] 7 [place] [address] Care Team Providers Care Water Treatment Plant Mechanic Name Role Phone Dominique Nielsen MD Primary Care Provider [phone] Reason for Visit * Reason Onset Date Comments Med Refill 03/23/2025 Encounter Details Date Type Department Care Team ([facility] st Contact Info) Description 03/23/2025 Refill [facility] MED & PEDS [address] [place] [address] Emelina Pino MD [address] [place] [address] Social History Tobacco Use Types Packs/Day Years [...] Description 06/22/2025 9:30 AM EST Office Visit [facility] MED & PEDS [address] [place] [address] Dominique Nielsen MD [address] [place] [address] documented as of this encounter Visit Diagnoses Not on filedocumented in this encounter Additional Health Concerns Assessment Noted Time PHQ-9 Depression Total Score: 0 08/28/19 24 3:50 PM EDT documented as of this encounter Care Teams Water Treatment Plant Mechanic Relationship Specialty Start Date End Date Dominique Nielsen MD [address] [place] [address] PCP - General Family Medicine 04/04/21 documented as of this encounter
--- OUTSIDE RECORDS SUMMARY | 2025-05-11 17:58 | XMS_ITS | Encounter Summary ---
Author Organization [employer] Address [address] [place] [address] 7t [place] [address] Care Team Providers Care Construction Analyst Name Role Phone Dominique Nielsen MD Primary Care Provider [phone] Reason for Visit * Reason Comments Med Refill Encounter Details Date Type Department Care Team (Late Contact Info) Description 11/04/2022 Refill [facility] MED & PEDS [address] [place] [address] Dominique Nielsen MD [address] [place] [address] Rash in adult Social History Tobacco Use [...] Encounters Date Type Department Care Team (Late Contact Info) Description 06/22/2025 9:30 AM EST Office Visit [facility] MED & PEDS [address] [place] [address] Dominique Nielsen MD [address] [place] [address] documented as of this encounter Visit Diagnoses Diagnosis Rash in adult documented in this encounter Additional Health Concerns Assessment Noted Time PHQ-9 Depression Total Score: 13 03/13/2 023 9:28 AM EDT documented as of this encounter Care Teams Construction Analyst Relationship Specialty Start Date End Date Dominique Nielsen MD [address] [place] [address] PCP - General Family Medicine 04/04/21 documented as of this encounter
--- OUTSIDE RECORDS SUMMARY | 2025-05-11 17:58 | XMS_ITS | Clinical Summary ---
Author Organization [facility] Address [address] [place] [address] Phone Care Team Providers Care Field Crops Harvest Machine Operator Name Role Phone Dominique Nielsen MD Primary Care Provider [phone] Allergies Active Allergy Reactions Criticality Noted Date Comments Aspirin Itching,Rash Low 01/17/2018 Face & neck redness Face and neck redness Penicillins Rash High 05/27/2022 Pollen Extracts 08/08/2024 Medications No known medications Active Problems No known active problems Surgical History Surgery Date Site/Laterality Comments SECTION [...] Orientation Straight 08/08/2024 11 :46 AM EDT Last Filed Vital Signs Vital Sign Reading Time Taken Comments Blood Pressure 149/69 08/08/2024 9:36 AM EDT Pulse 79 08/08/2024 9:36 AM EDT Temperature 36.6 C (97.9 F) 08/08/2024 9:36 AM EDT Respiratory Rate 18 08/08/2024 9:36 AM EDT [...] RSV Immunization Adult Patients (1 - Risk 50-74 years 1-dose series) 2002 Falls Risk Assessment 04/16/2022 Hepatitis C Screening 04/16/2022 Medicare Annual Wellness Visit 04/16/2022 Social Influencers of Health Screening 04/16/2022 Hypertension/CHF/CAD Annual BMP Blood Test 04/28/2022 Diabetes: Annual Urine Albumin-Creatinine Ratio (uACR) 10/18/2023 10/17/2022 Depression Screening 05/14/2024 Diabetes: Blood Sugar Contro l Test (HGBA1C) 10/16/2024 04/17/2024 COVID-19 Vaccine (1 - 2024-2 6 season) 2025 Influenza Vaccine (#1) 2025 04/04/2021 Colorectal Cancer Screening: FIT-DNA (Cologuard) [...] Procedure Name Priority Date/Time Associated Diagnosis Comments DXA BONE DENSITY STUDY 1+ SITS AXIAL SKEL Routine 03/19/2018 1:18 PM EST Thoracogenic scoliosis, thoracic region from Last 3 Months or Most Recently Relevant to Health Maintenance Results * DXA BONE DENSITY STUDY 1+ SITS AXIAL SKEL (03/19/2018 1:18 PM EST) Anatomical Region Laterality Modality Bone Densitometr y 01/17/2018 2:20 PM EDT Narrative 03/20/2018 1:51 PM EST BONE DENSITY Lumbar Spine T-score is -1.3 [...] (World Health Organization Fracture Risk Assessment) The [facility] Department of Internal Medicine recommends using National [...] (World Health Organization Fracture Risk Assessment) The [facility] Department of Internal Medicine recommendsusing National Osteoporosis [...] fracture risk by FRAX. Ponce Dumont MD [facility] DXA PROCEDURES [place] l Result from Last 3 Months or Most Recently Relevant to Health Maintenance Insurance [place]ICA[place] - [place] [facility] SENIOR LIVING OPTIONS Member Subscriber Plan / Payer (Ef fective 2024-Present) Name:Raeann Tejada Relation to Subscriber:Self Name:Raeann Tejada Payer ID:[id number] Group ID:Not on file Type:Not on file Address: [address] [place] [address] Care Teams Field Crops Harvest Machine Operator Relationship Specialty Start Date End Date Dominique Nielsen MD [address] [place] [id number] [facility] - General 12/19/21
--- OUTSIDE RECORDS SUMMARY | 2025-05-11 17:58 | XMS_ITS | Encounter Summary ---
Author Organization [employer] Address [address] [facility] 7t [place] [address] Care Team Providers Care Oil Spreader Operator Name Role Phone Dominique Nielsen MD Primary Care Provider Reason for Visit * Reason Onset Date Comments callback requested 04/28/2024 Encounter Details Date Type Department Care Team ([facility] Contact Info) Description 04/28/2024 Telephone [facility] MEDICINE [address] [place] [address] Dominique Nielsen MD [address] [place] [address] callback requested Social History Tobacco Use Types [...] the past 12 months, has t he [employer], gas, oil or water [employer] threatened to shut off services in your [...] a callback as pt received something from [facility] like for a lab test but she's unknown of what she receive. Callback number [phone] documented in this encounter Plan of Treatment Upcoming Encounters Date Type Department Care Team (Late st Contact Info) Description 06/22/2025 9:30 AM EST Office Visit [facility] MED & PEDS [address] [place] [address] Dominique Nielsen MD [address] [place] [address] documented as of this encounter Visit Diagnoses Not on filedocumented in this encounter Additional Health Concerns Assessment Noted Time PHQ-9 Depression Total Score: 0 08/28/19 24 3:50 PM EDT documented as of this encounter Care Teams Oil Spreader Operator Relationship Specialty Start Date End Date Dominique Nielsen MD [address] [place] [address] PCP - General Family Medicine 04/04/21 documented as of this encounter
--- OUTSIDE RECORDS SUMMARY | 2025-05-11 17:58 | XMS_ITS | Encounter Summary ---
Author Organization [employer] Address [address] [facility] 7t [place] [address] Care Team Providers Care Ferry Captain Name Role Phone Dominique Nielsen MD Primary Care Provider [phone] Reason for Visit * Reason Onset Date Comments Nurse Triage 03/14/2023 Encounter Details Date Type Department Care Team ([facility] st Contact Info) Description 03/14/2023 Telephone [facility] CH[facility] MED & PEDS [address] [place] [address] Dominique Nielsen MD [address] [place] [address] Nurse Triage Social History Tobacco Use Types [...] 03/14/2023 5:03 PM EDT Triage call with [employer] Automatic Drilling Machine Operator ID [id number] Pt daughter LUCAS Paulson, reports Pt was seen in [facility] for correa on the left arm from [...] now, pt was seen on 03/12 at [facility] for correa. Daughter states medication given is not working. The caller accepted this outcome Please contact daughter at [phone] documented in this encounter Plan of Treatment Upcoming Encounters Date Type Department Care Team (Late st Contact Info) Description 06/22/2025 9:30 AM EST Office Visit [facility] CH[facility] MED & PEDS [address] [place] [address] Dominique Nielsen MD [address] [place] [address] documented as of this encounter Visit Diagnoses Not on filedocumented in this encounter Additional Health Concerns Assessment Noted Time PHQ-9 Depression Total Score: 2 02/06/20 23 10:05 AM EDT documented as of this encounter Care Teams Ferry Captain Relationship Specialty Start Date End Date Dominique Nielsen MD [address] [place] [address] PCP - General Family Medicine 04/04/21 documented as of this encounter
--- OUTSIDE RECORDS SUMMARY | 2025-05-11 17:58 | XMS_ITS | Data Portability ---
Author Organization [employer] Address [address] [place] [address] Assessment Encounter Date Assessment Date Assessment LastModified by Organization Details LastModified Time 01/30/2023 01/30/2023 I provided real -time medical direction via phone for this encounter, and was available for additional phone based assistance as needed. I have reviewed and agree with the Assessment and Plan as documented by the Dry House Worker. Patient given the opportunity to ask questions. As per above, patient presents with right lower quadrant pain that has been present for several days. She denies fever or chills. She denies a change in her bowel habits. Her daughter was concerned about a possible UTI. Urine dip shows negative for any evidence of blood and no worrisome signs for infection. Reflex culture was not warranted based on urinalysis. Differential diagnosis is broad however would have her follow-up with her PCP. Red flags discussed as to when to seek a higher level of care. We discussed the diagnostic uncertainty of home visits and the risk associated with this. In this case, the patient and I felt this to be an acceptable and reasonable amount of risk given the benefit of avoiding an ED visit. We discussed the need to seek care urgently/emergentl y in the setting of any new or worsening serious symptoms, particularly fever chills lightheadedness altered mental status , abdominal pain that is worsened or change in bowel habits where she cannot pass stool , cannot pass gas, blood in stool, fever or chills. [email or web address] Not available 01/30/2023 16:52:16 Plan of Treatment Reminders Order Date Submit Date Provider Last Modified By Organization Details Last Modified Time Details Appointments None record ed. Lab None record ed. Referral None record ed. Procedures None record ed. Surgeries None record ed. Imaging None record ed. Medication Orders None record ed. Patient TargetsNo targets recorded. Patient InstructionsNo instructions recorded. Reason for Referral None Reported. Medical Equipment None Reported. Allergies Allergen ID Allergen Name Allergen Category Reaction Reaction Severity Criticality Documentation Date Start Date Code Code System Note Provider Name and Address Organization Details Recorded Time 7917 Product containin g penicilli n (product) medicatio n Not available Not available Not available 03/11/2024 56870 8001 SNOMED Not Available [employer] - production 4 03:40:40 7918 aspirin medicatio n Not available Not available Not available 03/11/2024 1191 RxNorm Not Available [employer] [facility] - production 4 03:40:40 Medications Name Sig Start Date Stop Date Status Note LastModified by Organization Details LastModified Time atorvastatin 40 mg tablet TAKE 1 TABLET BY MOUTH EVERY DAY active Not Available Not Available No t Available terbinafine HCl 1 % topical cream APPLY TOPICALLY TO THE AFFECTED AREA TWICE DAILY active Not Available Not Available No t Available doxycycline hyclate 100 mg capsule TAKE 1 CAPSULE BY MOUTH TWICE DAILY active Not Available Not Available No t Available cetirizine 10 mg tablet TAKE 1 TABLET BY MOUTH EVERY MORNING active Not Available Not Available No t Available doxepin 25 mg capsule active Not Available Not Available Not Available clonazepam 0.5 mg tablet TAKE 1 TABLET BY MOUTH NEEDED FOR ANXIETY 30 MINUTES BEFORE PROCEDURE active Not Available Not Available No t Available chlorthalidon e 25 mg tablet active Not Available Not Available Not Available tramadol 50 mg tablet TAKE 1 TABLET BY MOUTH EVERY 6 TO 8 HOURS NEEDED FOR SEVERE PAIN active Not Available Not Available No t Available acetaminophen 500 mg tablet TAKE 2 TABLETS BY MOUTH EVERY 8 HOURS active Not Available Not Available No t Available amlodipine 10 mg tablet TAKE 1 TABLET BY MOUTH EVERY DAY active Not Available Not Available No t Available cephalexin 500 mg capsule active Not Available Not Available Not Available halobetasol propionate 0.05 % topical ointment APPLY TOPICALLY TO THE AFFECTED AREA TWICE DAILY active Not Available Not Available No t Available olopatadine 0.1 % eye drops INSTILL ONE DROP TO BOTH EYE TWICE DAILY ORF ITCHING active Not Available Not Available No t Available prednisone 50 mg tablet active Not Available Not Available No t Available naproxen 500 mg tablet,delaye d release active Not Available Not Available No t Available polymyxin B sulfate 10,000 unit-trimetho prim 1 mg/mL eye drops INSTILL 1 DROP ON AFFECTED EYE 4 TIMES A DAY FOR 7 DAYS. active Not Available Not Available No t Available betamethasone , augmented 0.05 % topical ointment APPLY TOPICALLY TO THE AFFECTED AREA TWICE DAILY active Not Available Not Available No t Available losartan 100 mg tablet TAKE 1 TABLET BY MOUTH EVERY DAY active Not Available Not Available No t Available hydrochloroth iazide 12.5 mg tablet active Not Available Not Available No t Available Vitals Date Recorded Respiratory rate Oxygen saturation Heart rate Body temperature Body weight Systolic And Diastolic Provider Name and Address Organization Details Last Updated DateTime 3 16 /min 97 % 92 /min 97.5 [degF] 00607.8 8 g 161/71 mm[Hg] Not Available [employer] - production 3 16:49:42 Social History None recorded. Functional Status None recorded. Mental Status None recorded. Family History Nothing Reported. Medical History No medical history recorded. Gynecological HistoryNo gynecological history recorded. Obstetrics History GPAL:G 0 P 0 0 0 0 Past Encounters Encounter ID Performer Location Encounter Start Date Encounter Closed Date Diagnosis/Indication Diagnosis SNOMED-CT Code Diagnosis ICD10 Code Diagnosis IMO Codes Diagnosis Note [id number] Alexandria Washington MD Main - [address] [address] 01/30/2023 16:49:37 01/31/2023 11:56:22 Right lower quadrant pain 967502890 R10.31 Health Concerns Section Related Observation LastModified by Organization Detai ls LastModified Time None Recorded Concern Status LastModified by Organization Details LastModified Time None Recorded Advance Directives Directive None Recorded Payers Insurance Date Sequence Insurance Name Policy Number Policy Scherer Covered Member ID Scherer Member ID Guarantor Name 12/16/2023 1 [facility] - DOS ON OR AFTER 2022 - DUAL ELIGIBLE - SENIOR LIVING OPTIONS AND ONE CARE (MEDICARE REPLACEMENT/ADV ANTAGE - HMO) Raeann Rivera [id number] Raeann Rivera Notes Date Note Type Note Provider Name and Address Organization Details Recorded Time 01/30/2023 text/html HPI: Call to Raeann Rivera, spoke with daughter who is on HIPPA. Reports pt having right lower abdominal pain that is constant x 2 days. Denies any nausea vomiting or fever. Does endorse flank pain. No blood in urine. Is having pain with passing urine and frequency. Pt unable to come into [facility] Referral submitted into portal. .................. .................. .................. .................. .................. .................. .................. ............... CRC Nursing Assessment: Comments: CRC RN did not require any additional information to process this visit. .................. .................. .................. .................. .................. .................. .................. ............... Dry House Worker Note From Frankie Weinstein: Pt reports two days of dysuria, left sided flank pain and LRQ ABD pain. Pt denies CP, SOB, MONREAL, hematuria, f/n/v/d. Pt has never had a UTI. Pt is alert, NAD. VSS. Afebrile. Neuro exam and gait normal. Lungs CTA. ABD soft, non distended, tender in LRQ. No CVAT. No LLE. Urine dip not indicative of infection. Pt instructed to take Tylenol for pain and monitor sx for 24-48 hours and call back if sx worsen or new sx present. .................. .................. .................. .................. .................. .................. .................. ............... Disposition: Fulfilled Alexandria Washington MD [address] [facility],[address], [place], [address], TOMASA HANKINS 01/30/2023 16:53:17 OBGyn Episode No OBEpisode recorded.
--- OUTSIDE RECORDS SUMMARY | 2025-05-11 17:58 | XMS_ITS | Encounter Summary ---
Author Organization [employer] Address [address] [facility] 7 [place] [address] Care Team Providers Care Ip Attorney Name Role Phone Dominique Nielsen MD Primary Care Provider Reason for Visit * Reason Onset Date Comments Med Refill 11/25/2024 Encounter Details Date Type Department Care Team ([facility] st Contact Info) Description 11/25/2024 Refill [facility] CH[facility] MED & PEDS [address] [place] [address] Alexis Clinton MD [address] [place] [address] Primary hypertension Social History Tobacco Use Types [...] Description 06/22/2025 9:30 AM EST Office Visit [facility] CHC MED & PEDS [address] [place] [address] Dominique Nielsen MD [address] [place] [address] documented as of this encounter Visit Diagnoses Diagnosis Primary hypertension Unspecified essential hypertension documented in this encounter Additional Health Concerns Assessment Noted Time PHQ-9 Depression Total Score: 0 08/28/19 24 3:50 PM EDT documented as of this encounter Care Teams Ip Attorney Relationship Specialty Start Date End Date Dominique Nielsen MD [address] [place] [address] PCP - General Family Medicine 04/04/21 documented as of this encounter
--- OUTSIDE RECORDS SUMMARY | 2025-05-11 17:58 | XMS_ITS | Encounter Summary ---
Author Organization [employer] Address [address] [facility] 7t [place] [address] Care Team Providers Care Cvt Tech Name Role Phone Dominique Nielsen MD Primary Care Provider [phone] Encounter Details Date Type Department Care Team (Latest Contact Info) Description 05/11/2025 Travel Social History Tobacco Use Types Packs/Day [...] 06/22/2025 9:30 AM EST Office Visit [facility] CHC MED & PEDS [address] [place] [address] Dominique Nielsen MD [address] [place] [address] documented as of this encounter Goals Goal [...] their type 2 diabetes No Karla Herrmann Patient has chronic kidney disease Care Plan Patient has chronic kidney disease No Karla Herrmann Weekly blood pressure task Care Plan Weekly blood pressure task No Karla Herrmann Patient has chronic kidney disease Care Plan Patient has chronic kidney disease No Karla Herrmann Weekly blood pressure task [...] Care Plan Patient has chronic kidney disease Satya Pitts [place] Patient has chronic kidney disease Care Plan Patient has chronic kidney disease No Satya Gonzalez [place] documented as of this encounter Visit Diagnoses Not on filedocumented in this encounter Additional Health Concerns Active [...] documented as of this encounter Care Teams Cvt Tech Relationship Specialty Start Date End Date Dominique Nielsen MD [address] [place] [address] PCP - General Family Medicine 04/04/21 documented as of this encounter
--- OUTSIDE RECORDS SUMMARY | 2025-05-11 17:58 | XMS_ITS | Clinical Summary ---
Author Organization [employer] Address [address] [facility] 7t [place] [address] Care Team Providers Care Attorney Law Clerk Name Role Phone Dominique Nielsen MD Primary Care Provider [phone] Allergies Active Allergy Reactions Criticality Noted Date Comments Aspirin Rash,Itching,Hives Low 01/17/2018 Face & neck redness Face and neck redness Gramineae Pollens 12/26/2022 Penicillins Rash,Unknown High 05/27/2022 Pollen Extract 08/08/2024 Medications glucose blood (FREESTYLE LITE) test strip 1 each every 12 (twelve) hours. 022 Active cholecalciferol (Vitamin D-3) 50 MCG [...] before intended procedure 1 tablet 023 Active halobetasol (UltraVATE) 0.05 % ointmentIndicat ions:Pigmented purpura (CMS/HCC) Apply topically 2 times daily. 50 g 023 Active miconazole (Micatin) 2 % cream Apply topically 2 times daily. 35 g 023 Active betamethasone dipropionate (Diprolene) 0.05 % ointment APPLY TO THE AFFECTED AREA ON THE LEGS AND ARRMS TWICE DAILY FOR 2 WEEK Active FREESTYLE LITE test stripIndication s:Type 2 diabetes mellitus without complication, without long-term current use of insulin ([facility]) 1 each by Other route 2 times daily. 100 each 11 024 Active Lancets miscIndications :Type 2 diabetes mellitus without complication, without long-term current use of insulin ([facility]) 1 Units 2 times daily. 100 each 11 024 Active atorvastatin (Lipitor) 40 MG tablet TAKE 1 TABLET BY MOUTH EVERY DAY 90 tablet 1 Active Minoxidil 5 % solution apply 1/2 cupful of minoxidil 5% foam once daily in the morning 200 mL 3 024 Active olopatadine (Patanol) 0.1 % ophthalmic solution Administer 1 drop into both eyes 2 times daily. 5 mL 2 024 Active hydrocortisone 1 % lotionIndicatio ns:Intertrigo APPLY 1 APPLICATION TOPICALLY TWICE DAILY. 114 g 025 Active econazole nitrate 1 % creamIndication s:Intertrigo APPLY TOPICALLY TO THE AFFECTED AREA DAILY 85 g 025 Active Restasis 0.05 % ophthalmic emulsion instill 1 drop in both eyes twice daily Active moxifloxacin (Vigamox) 0.5 % ophthalmic solution INSTILL 1 DROP INTO BOTH EYES FOUR TIMES DAILY FOR 1 WEEK THEN STOP Active pseudoephedrine ER (Sudafed-12 Hour) 120 MG 12 hr tablet Take 1 tablet (120 mg) by mouth every 12 (twelve) hours. Do not crush, chew, or split. 60 tablet 1 Active nitrofurantoin, macrocrystal-mo nohydrate, (Macrobid) 100 MG capsule Take 1 capsule (100 mg) by mouth 2 times daily for 5 days. 10 capsule 025 2025 Active amLODIPine (Norvasc) 10 MG tabletIndicatio ns:Primary hypertension Take 1 tablet (10 mg) by mouth in the morning. 90 tablet 1 Active carvedilol (Coreg) 12.5 MG tablet Take 1 tablet (12.5 mg) by mouth with breakfast and with evening meal. 60 tablet 11 025 2025 Active chlorthalidone (Hygroton) 25 MG tablet Take 1 tablet (25 mg) by mouth Once per day. 90 tablet 1 Active cetirizine (ZyrTEC) 10 MG tabletIndicatio ns:Rash in adult Take 1 tablet (10 mg) by mouth in the morning. 90 tablet 1 Active furosemide (Lasix) 20 MG tabletIndicatio ns:Hypertension , unspecified type Take 1 tablet (20 mg) by mouth Once per day. 90 tablet 1 Active pantoprazole (ProtoNix) 40 MG EC tablet Take 1 tablet (40 mg) by mouth before breakfast. Do not crush, chew, or split. 90 tablet 1 Active spironolactone (Aldactone) 25 MG tablet Take 1 tablet (25 mg) by mouth in the morning. 90 tablet 1 Active losartan (Cozaar) 100 MG tabletIndicatio ns:Primary hypertension Take 1 tablet (100 mg) by mouth Once per day. 90 tablet 1 Active levothyroxine (Synthroid) 25 MCG tablet Take 1 tablet (25 mcg) by mouth before breakfast. 30 tablet 11 025 2025 Active furosemide (Lasix) 20 MG tablet Take 10 mg by mouth in the morning. 022 2024 Discontinued(T herapy completed) chlorthalidone (Hygroton) 25 MG tablet Take 1 tablet (25 mg) by mouth in the morning. 90 tablet 1 023 2024 Discontinued(R eorder (will not trigger notification to Pharmacy)) terbinafine (LamISIL AT) 1 % cream Apply topically 2 times daily. 90 g 023 2024 Discontinued(T herapy completed) silver sulfADIAZINE (Silvadene) 1 % cream Apply topically 2 times daily. 400 g 023 2024 Discontinued(T herapy completed) triamcinolone (Kenalog) 0.1 % ointmentIndicat ions:Rash in adult Apply topically 2 times daily. 30 g 024 2024 Discontinued(T herapy completed) doxepin (SINEquan) 25 MG capsuleIndicati ons:Rash in adult TAKE 1 CAPSULE(25 MG) BY MOUTH AT BEDTIME 90 capsule 1 024 2024 Discontinued(T herapy completed) spironolactone (Aldactone) 25 MG tablet TAKE 1 TABLET(25 MG) BY MOUTH IN THE MORNING 90 tablet 1 024 2024 Discontinued(R eorder (will not trigger notification to Pharmacy)) cetirizine (ZyrTEC) 10 MG tabletIndicatio ns:Rash in adult TAKE 1 TABLET BY MOUTH IN THE MORNING 90 tablet 1 024 2024 Discontinued(R eorder (will not trigger notification to Pharmacy)) levothyroxine (Synthroid) 25 MCG tablet Take 1 tablet (25 mcg) by mouth before breakfast. 30 tablet 11 024 2024 Discontinued(R eorder (will not trigger notification to Pharmacy)) carvedilol (Coreg) 12.5 MG tablet Take 1 tablet (12.5 mg) by mouth with breakfast and with evening meal. 60 tablet 11 10:16 AM EST 2024 Discontinued(R eorder (will not trigger notification to Pharmacy)) pantoprazole (ProtoNix) 40 MG EC tablet TAKE 1 TABLET(40 MG) BY MOUTH BEFORE BREAKFAST. DO NOT CRUSH, CHEW, OR SPLIT 90 tablet 1 025 2024 Discontinued(R eorder (will not trigger notification to Pharmacy)) amLODIPine (Norvasc) 10 MG tabletIndicatio ns:Primary hypertension TAKE 1 TABLET BY MOUTH IN THE MORNING 90 tablet 1 025 2024 Discontinued(R eorder (will not trigger notification to Pharmacy)) furosemide (Lasix) 20 MG tabletIndicatio ns:Hypertension , unspecified type TAKE 1 TABLET(20 MG) BY MOUTH DAILY 90 tablet 1 025 2024 Discontinued(R eorder (will not trigger notification to Pharmacy)) losartan (Cozaar) 100 MG tabletIndicatio ns:Primary hypertension Take 1 tablet (100 mg) by mouth Once per day. 90 tablet 025 2024 Discontinued(R eorder (will not trigger notification to Pharmacy)) Active Problems Problem Noted Date Diagnosed Date Dysuria 05/11/2025 Subclinical hypothyroidism 05/05/2024 Localized swelling of both [...] rotator cuff involvement, will get records from [facility] to review and will send for [...] Patient with persistent rash. Will refer to customer success specialist for further evaluation. Osteopenia 03/20/2018 Varicose [...] BP. Future Appointments Date Time Provider Department Center 09/24/2023 10:00 AM [facility] NURSE [facility] - If SBP < 130/DBP <80 mmHg [...] Encounters Date Type Department Care Team Description 05/11/2025 3:45 PM EST Office Visit [facility] [address] [place] [address] Dominique Nielsen MD Upper respiratory tract infection, unspecified type (Primary Dx); Type 2 diabetes mellitus with hyperglycemia, unspecified whether technician terminal and repeater insulin use (HCC); Dysuria; Primary hypertension; Rash in adult; Hypertension, unspecified type 05/11/2025 Travel 05/05/2025 Telephone [facility] [address] [place] [address] Dominique Nielsen MD chart prep 04/30/2025 Patient Outreach [facility] [address] [place] [address] Dominique Nielsen MD Pre-visit Planning (SDOH will need to be completed in office. ) 03/23/2025 Refill [facility] [address] [place] [address] Emelina Pino MD 02/13/2025 Refill [facility] [address] [place] [address] Alexis Clinton MD Primary hypertension 02/09/2025 Refill [facility] [address] [place] [address] Alexis Clinton MD Primary hypertension from Last 3 Months Immunizations Immunization Administration Dates Next Due Influenza injectable quadrivalent [...] Mass Index 25.3 05/11/2025 3:08 PM EST Plan of Treatment Upcoming Encounters Date Type Department Care Team (Late st Contact Info) Description 06/22/2025 9:30 AM EST Office Visit [facility] [address] [place] [address] Dominique Nielsen MD [address] [place] [address] Health Maintenance Due Date Last Done Comments CT Colonography 1950 Colonoscopy 1950 Dental Oral Exam 1950 Dental Prophylaxis 1950 Dental X-Ray: Bitewings 1950 Dental X-Ray: Full Mouth 1952 FIT 1950 Sigmoidoscopy 1952 Alcohol/Substance Use Screening 1964 Diabetes: Urine Protein Screening 10/18/2023 10/17/2022, 01/05/2022, 04/13/2021 Diabetes: Foot Exam 07/11/2024 07/11/2023, 07/11/2023, 07/11/2023, Additional history exists SDOH Screening 08/27/2024 08/28/2023 Lipid Panel 12/11/2024 12/12/2023, 06/0 10/2022, 01/05/2022, Additional history exists COVID-19 Vaccine ( season) 2025 Depression Screening 04/17/2025 04/17/2024, 08/28/19 24 FOBT 05/26/2025 05/26/2024 Mammogram 09/13/2025 09/14/2023 Diabetes: Hemoglobin A1C 11/09/2025 025, 11/04/2024, 04/17/2024, Additional history exists Tobacco Screening 05/11/2026 05/11/2025 Eye Exam 10/22/2026 10/22/2024, 10/14/2024 Colorectal Cancer Screening 05/26/2027 FIT DNA/Cologuard 05/26/2027 [...] on patient's age to complete this topic Goals Goal Patient Goal Type Associated Problems Recent Progress Patient-Stated? Author Help patients manage their type 2 diabetes Care Plan Help patients manage their type 2 diabetes Karla Allan Weekly blood pressure task Care Plan Weekly [...] chronic kidney disease No Satya Gonzalez MA Procedures Procedure Name Priority Date/Time Associated Diagnosis Comments POCT RAPID COVID ANTIGEN Routine 05/11/2025 4:11 PM EST Upper respiratory tract infection, unspecified type POCT GLYCATED HEMOGLOBIN, TOTAL Routine 05/11/2025 3:48 PM EST Type 2 diabetes mellitus with hyperglycemia, unspecified whether snf insulin use (HCC) POCT GLUCOSE (CPT-86705) Routine 05/11/2025 3:47 PM EST Type 2 diabetes mellitus with hyperglycemia, unspecified whether snf insulin use (HCC) POCT URINALYSIS DIPSTICK Routine 05/11/2025 3:44 PM EST Dysuria AMB REFERRAL TO OPHTHALMOLOGY Routine 10/22/2024 Dry eyes, bilateral LAB COLOGUARD COLON CANCER SCREEN Routine 05/26/2024 8:30 AM EST Screening for colon cancer LIPID PANEL, STANDARD Routine 12/12/2023 8:50 AM [...] Relevant to Health Maintenance Results * POCT Rapid Covid-19 BinaxNOW (05/11/2025 4:11 PM EST) [facility] Rapid COVID Ag Negative QC Media Lot # [id number] Lot# Expiration Date 82, Swab 05/11/2025 4:11 PM EST Dominique Nielsen MD POINT OF CARE TEST ENTER/EDIT ORDERABLES Final Result * (ABNORMAL) POCT Hgb A1c (05/11/2025 3:48 PM EST) [facility] Hemoglobin A1C 6.9(A) 4.0 - 5.7 % QC Media Lot # [id number] Lot# Expiration Date 52, Blood 05/11/2025 3:48 PM EST Dominique Nielsen MD POINT OF CARE TEST ENTER/EDIT ORDERABLES Final Result * POCT Glucose (05/11/2025 3:47 PM EST) [facility] Glucose Blood, POC 135 60 - 200 mg/dL QC Media Lot # [id number] Lot# Expiration Date 47,026 Blood Capillary blood specimen / Unknown 05/11/2025 3:47 PM EST Dominique Nielsen MD POINT OF CARE TEST ENTER/EDIT ORDERABLES Final Result * (ABNORMAL) POCT Urinalysis (05/11/2025 3:44 PM EST) Color, UA Yellow Clarity, UA Clear Glucose, [...] Media Lot # [id number] Lot# Expiration Date 234 Urine (Urine, Random) 05/11/2025 3:44 PM EST Dominique Nielsen MD POINT OF CARE TEST ENTER/EDIT ORDERABLES Final Result * Referral to Ophthalmology (10/22/2024) Carlita Vera OD OUTPATIENT REFERRAL ORDERABLES Final Result * Cologuard?? colon cancer screening (05/26/2024 8:30 AM EST) Cologuard Result Negative Negative 06/03/19 11:53 AM EST [facility] (CLIA #:[id number]) Comment: NEGATIVE TEST RESULT. A negative Cologuard result indicates a low likelihood that a colorectal cancer (CRC) or advanced adenoma (adenomatous polyps with more advanced pre-malignant features) is present. The chance that a person with a negative Cologuard test has a colorectal cancer is less than 1 in 1500 (negative predictive value >99.9%) or has an advanced adenoma is less than 5.3% (negative predictive value 94.7%). These data are based on a prospective cross-sectional study of 10,000 individuals at average risk for colorectal cancer who were screened with both Cologuard and colonoscopy. (Ash Reilly al, N Engl J Med 2014;370(14):9008-9897) The normal value (reference range) for this assay is negative. COLOGUARD RE-SCREENING RECOMMENDATION: Periodic colorectal cancer screening is an important part of preventive healthcare for asymptomatic individuals at average risk for colorectal cancer. Following a negative Cologuard result, the [employer] Cancer Society and U.S. Multi-Society Task Force screening guidelines recommend a Cologuard re-screening interval of 3 years. References: [employer] Guideline for Colorectal Cancer Screening: https://www.cancer.org/cancer/rohfr-bjsobh-yxdcwy/gvxjsklxr-vkxmjtlxu-pigadpp/ac s-rec ommendations.html.; Hussain DK, Ayleen YARBROUGH, Jeremy FairbanksK, Colorectal Cancer Screening: Recommendations for Physicians and Patients from the U.S. Multi-Society Task Force on Colorectal Cancer Screening , Am J Gastroenterology 2017; 112:3813-5676. TEST DESCRIPTION: Composite algorithmic analysis of stool DNA-biomarkers with hemoglobin immunoassay. Quantitative values of individual biomarkers are not [...] (Ash Reilly al, N Engl J Med 2014;370(14):9705-3583.) Cologuard may produce a false negative or false positive result (no colorectal cancer or precancerous polyp present at colonoscopy follow up). A negative Cologuard test result does not guarantee the absence of CRC or advanced adenoma (pre-cancer). The current Cologuard screening interval is every 3 years. ([employer] and U.S. Multi-Society Task Force). Cologuard performance data in a 10,000 patient pivotal study using colonoscopy as the reference method can be accessed at the following location: www.[employer]/results. Additional description of the Cologuard test process, warnings and precautions can be found at www.cologDialogicrd.com. Stool specimen (specimen) 05/26/2024 8:30 AM EST 05/28/2024 11:06 AM EST us Alexis Clinton MD LAB MOLECULAR DIAGNOSTICS O RDERABLES Final Result [facility] (CLIA #:[id number]) [address] [place] [address], [place] [phone] * Lipid Panel, Standard (12/12/2023 8:50 AM EDT) Triglycerides 148 <150 mg/dL [facility] Comment:Desirable Triglyceri de: less than 150 mg/dLBorderline High Triglyceride 150-199 mg/dLHigh Triglyceride: 200-499 mg/dLVery High Triglyceride: greater than or equal to 5OO mg/dL Cholesterol 140 <200 mg/dL [facility] Comment:Desirable Cholestero l: less than 200 mg/dLBorderline High Cholesterol: 200-239 mg/dLHigh Cholesterol: greater than 239 mg/dL LDL Cholesterol Calculated 62 <100 mg/dL [facility] Comment:Desirable LDL: less than 100 mg/dLNear Optimal/Above Optimal LDL: 110- 129 mg/dLBorderline High LDL: 130-159 mg/dLHigh LDL: 160-189 mg/dLVery High LDL: greater than or equal to 190 mg/dL HDL Cholesterol 49 >40 mg/dL [facility] Comment:Desirable HDL: great er than 40 mg/dL Note: This HDL assay may give artificially low results in patients with liver disease. Blood Venous blood specimen / Unknown 12/12/2023 8:50 AM EDT 12/12/2023 2:24 PM EDT us Dominique Nielsen MD LAB BLOOD ORDERABLES Final Re sult [facility] [address] [place] [address] [phone] * BI Mammogram Screening Tomosynthesis Bilateral (09/14/2023 2:20 PM EDT) Anatomical Region Laterality Modality Breast Bilateral Mammography 09/14/2023 2:20 PM EDT Narrative 10/15/2023 8:01 AM EDT [facility] [address] [place] [address] Mammography Report Signed Patient: Raeann Tejada MR#: [id number] : 1950 Acct:[id number] Age/Sex: 72 / F ADM Date: 09/14/23 Loc: HO.MAMMO Attending Dr: Dominique Nielsen MD Ordering Physician: Dominique Nielsen MD Results: 1Nega tive Date of Service: 09/14/23 Follow Up: 1 Year From Orig ina Mammogram Procedure(s): MM tomosynthesis screening BI Accession Number(s): [id number] cc: Dominique Nielsen MD EXAMINATION: MM SCREENING [...] Harper MD in OV> 10/15/23 0758 DD/ 142 TD/TT: Continuous Mining Machine Coal Miner: Procedure Note Donotuseinterpreter, Image - 10/15/2023 [facility] [address] [place], [place] [address] Mammography Report Signed Patient: Raeann Tejada#: [id number] : 3Acct:[id number] Age/Sex: 72 / FADM Date: 09/14/23 Loc: [facility] Attending Dr: Dominique Nielsen MD Ordering Physician: Dominique Nielsenesults: 1Nega tive Date of Service: 09/14/23Follow Up: 1 Year From Orig inal Mammogram Procedure(s): MM tomosynthesis screening BI Accession Number(s): [id number] cc: Dominique Nielsen MD EXAMINATION: MM SCREENING [...] in OV> 10/15/23 0758 DD/ 1420 TD/TT: Continuous Mining Machine Coal Miner: Dominique Nielsen MD IMG BI PROCEDURES Final Resul t * Albumin, Random Urine W/O Creatinine (10/17/2022 8:35 AM EDT) Albumin, Urine 8.7 See Note: mg/dL [facility] Comment: Reference Range: Reference Range Not established [facility] Comment: The ADA defines abnormalities in albumin excretion as follows: Albuminuria Category Result (mcg/mg creatinine) Normal to Mildly increased <30 Moderately increased 30-299 Severely increased > OR = 300 The ADA recommends that [...] MD LAB URINE ORDERABLES Final Re sult [facility] [address], [place] [address] [facility] [address] [place] [address] * HEPATITIS C AB W/REFL TO HCV RNA, QN, PCR (08/03/2021 8:53 AM EDT) Pathologist [facility] HEPATITIS C ANTIBODY NON-REACT JAS NON-REACT JAS [facility] INDEX 0.01 <1.00 [facility] Comment: HCV antibody was non-reactive. There is no laboratory evidence of HCV infection. In most cases, no further action is required. However, if recent HCV exposure is suspected, a test for HCV RNA (test code 82124) is suggested. For additional information please refer to http://education.Metaps/faq/FBM54g9 (This link is being provided for informational/ educational purposes only.) 08/03/2021 8:53 AM EDT us Dominique Nielsen MD HISTORICAL/NON ORDERABLE LABS Final Result [facility] [address] from Last 3 Months or Most Recently Relevant to Health Maintenance Additional Health Concerns Active Problems Noted Date [...] 05/11/2025 Patient has chronic kidney disease 05/11/[address] [place] [address] STANDARD [facility] [employer] OPT[employer] (HMO D-SNP) Care Teams Attorney Law Clerk Relationship Specialty Start Date End Date Doimnique Nielsen MD [address] [place] [phone] PCP - General Family Medicine 04/04/21
--- OUTSIDE RECORDS SUMMARY | 2025-05-11 17:58 | XMS_ITS | Encounter Summary ---
Author Organization [employer] Address [address] [facility] [address] [place] [address] Care Team Providers Care Insurance Claims Analyst Name Role Phone Dominique Nielsen MD Primary Care Provider [phone] Reason for Visit * Reason Onset Date Comments Med Refill 2024 Encounter Details Date Type Department Care Team ([facility] st Contact Info) Description 2024 Refill [facility] [address] [place] [address] Emelina Pino MD [address] [place] [address] Social History Tobacco Use Types Packs/Day Years [...] Description 06/22/2025 9:30 AM EST Office Visit [facility] [address] [place] [address] Dominique Nielsen MD [address] [place] [address] documented as of this encounter Visit Diagnoses Not on filedocumented in this encounter Additional Health Concerns Assessment Noted Time PHQ-9 Depression Total Score: 0 08/28/19 24 3:50 PM EDT documented as of this encounter Care Teams Insurance Claims Analyst Relationship Specialty Start Date End Date Dominique Nielsen MD [address] [place] [address] PCP - General Family Medicine 04/04/21 documented as of this encounter
[2025-05-11 18:48] LABS: Appearance Urine Clear; Glucose Urine UA Negative (Negative); PH 6.5 (5.0-9.0); Specific Gravity - Urine 1.020 (1.005-1.025); UMIC TRIGGER UACC YES
[2025-05-11 19:06] LABS: Microalbum/Creatinine Ratio Ur 21.0 ug/mg cr (<30)
[2025-05-11 19:42] LABS: Resp Syncy Virus RNA Qual PCR NEGATIVE (Negative); SARS COV2 PCR INHOUSE NEGATIVE (Negative)
== END 2025-05-11 16:20 ==
LOC: HO.CHCLNP 16:19
PROVIDERS: Visit Provider Family Medicine
DX: E11.65 Type 2 diabetes mellitus with hyperglycemia (principal); J06.9 Acute upper respiratory infection, unspecified; R30.0 Dysuria
CPT/HCPCS: 81001; 82043; 82570; 87637